=== PATIENT | male | born 1990 | race Caucasian/White ===

== ENCOUNTER 2020-10-25 18:09 | Emergency (ER) | payer SELFPAY ==
[~2020-10-25] VITALS: Ht 170 cm; Wt 79.0 kg
[2020-10-25 18:43] LABS: BASOPHILS # (AUTO) 0.1 10^3/uL (0.0-0.1); BASOPHILS % (AUTO) 1 % (0-10); EOSINOPHILS # (AUTO) 0.6 10^3/uL (0.0-0.3); EOSINOPHILS % (AUTO) 7 % (0-10); HEMATOCRIT 38 % (40-54); HEMOGLOBIN 12.8 g/dL (13.3-17.7); LYMPHOCYTES # (AUTO) 2.4 10^3/uL (1.0-4.0); LYMPHOCYTES % (AUTO) 29 % (12-44); MEAN CORPUSCULAR HEMOGLOBIN 29 pg (25-34); MEAN CORPUSCULAR HGB CONC 34 g/dL (32-36); MEAN CORPUSCULAR VOLUME 86 fL (80-99); MEAN PLATELET VOLUME 10.1 fL (9.0-12.2); MONOCYTES # (AUTO) 0.9 10^3/uL (0.0-1.0); MONOCYTES % (AUTO) 12 % (0-12); NEUTROPHILS # (AUTO) 4.1 10^3/uL (1.8-7.8); NEUTROPHILS % (AUTO) 51 % (42-75); PLATELET COUNT 234 10^3/uL (130-400); WHITE BLOOD COUNT 8.1 10^3/uL (4.3-11.0)
[2020-10-25] MEDS ORDERED: KETOROLAC 30 MG/ML VIAL IVP ONE (18:45)
[2020-10-25] MEDS ORDERED: LACTATED RINGERS 1,000 ML IV ONE (18:45)
[2020-10-25 18:49] LABS: CHLORIDE 98 MMOL/L (98-107); POTASSIUM 3.7 MMOL/L (3.6-5.0); SODIUM 133 MMOL/L (135-145)
[2020-10-25 18:50] LABS: CALCIUM 9.2 MG/DL (8.5-10.1)
[2020-10-25 18:51] LABS: TOTAL PROTEIN 7.6 GM/DL (6.4-8.2)
[2020-10-25 18:52] LABS: CARBON DIOXIDE 24 MMOL/L (21-32)
[2020-10-25 18:53] LABS: BILIRUBIN,TOTAL 0.6 MG/DL (0.1-1.0)
[2020-10-25 18:54] LABS: ALKALINE PHOSPHATASE 104 U/L (40-136)
[2020-10-25 18:55] LABS: GFR ESTIMATED > 60; GLUCOSE 452 MG/DL (70-105)
[2020-10-25 18:56] LABS: BUN/CREATININE RATIO 9
[2020-10-25 18:58] LABS: ALANINE AMINOTRANSFERASE 24 U/L (0-55)
[2020-10-25] MEDS ORDERED: inSUlin (REGULAR) HUMAN 1 UNIT/0.01 ML (CHARGE PER UNIT) IV ONE (19:00)
--- NOTE | 2020-10-25 19:05 | Diagnostic Imaging Report ---
EXAMINATION: Chest 1 view HISTORY: Cough and shortness of breath COMPARISON: None available. FINDINGS: The lungs are clear without edema or pneumonia. No pleural effusion or pneumothorax. Heart size is normal. IMPRESSION: 1. Clear lungs. Dictated by: Dictated on workstation # [id number]
--- NOTE | 2020-10-25 19:24 | ED General ---
General Chief Complaint: Respiratory Problems Stated Complaint: COUGH/CHEST PRESSURE/FEVER SOA HEADACHE Nursing Triage Note: ARRIVED VIA AMB WITH COMPLAINTS OF COUGH, CHEST DISCOMFORT, FEVER, FATIGUE, HEADACHE. STATES HE WAS EXPOSED X2 DAYS AGO TO COVID. Nursing Sepsis Screen: No Definite Risk Source of Information: Patient Exam Limitations: No Limitations History of Present Illness Date Seen by Provider: Oct 25, 2020 Time Seen by Provider: 18:16 Initial Comments This 30-year-old gentleman presents to the emergency room with flulike symptoms including headache, myalgia, cough, chest discomfort, especially after cough, diarrhea, low-grade fever, and most recently loss of taste and smell. He had a positive COVID-19 exposure from his nephew a few days ago. His roommate is a nurse so he is trying to be very proactive. He is a type I diabetic and reports his blood sugars normally run around 200. He gets symptomatic when his blood sugars dipped below 150. He is afebrile at this time but mildly tachycardic. Allergies and Home Medications Allergies Coded Allergies: No Known Drug Allergies (Unverified , 10/25/20) Home Medications Benzonatate 100 Mg Capsule, 200 MG PO TID PRN for COUGH Prescribed by: ALONA MILLER on 10/25/20 2019 Patient Home Medication List Home Medication List Reviewed: Yes Review of Systems Review of Systems Constitutional: see HPI EENTM: see HPI Respiratory: no symptoms reported Cardiovascular: see HPI Gastrointestinal: see HPI Genitourinary: no symptoms reported Musculoskeletal: no symptoms reported Skin: no symptoms reported Psychiatric/Neurological: See HPI Hematologic/Lymphatic: No Symptoms Reported Immunological/Allergic: no symptoms reported Past Gythrbl-Scqxjw-Siwjee Hx Past Med/Social Hx: Reviewed Nursing Past Med/Soc Hx Patient Social History Alcohol Use: Denies Use Recreational Drug Use: No Smoking Status: Current Everyday Smoker Recent Foreign Travel: No Contact w/Someone Who Travel: No Recent Infectious Disease Expo: No Recent Hopitalizations: No Seasonal Allergies Seasonal Allergies: No Past Medical History Surgeries: No Respiratory: No Cardiac: No Neurological: No Genitourinary: No Gastrointestinal: No Musculoskeletal: No Endocrine: Yes Diabetes, Insulin dep HEENT: No Cancer: No Psychosocial: No Integumentary: No Physical Exam Vital Signs Vital Signs - First Documented 10/25/20 18:15 Temp 36.2 Pulse 120 Resp 18 B/P (MAP) 129/55 (79) Pulse Ox 96 O2 Delivery Room Air Capillary Refill : Less Than 3 Seconds Height, Weight, BMI Height: '" Weight: lbs. oz. 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 Norm as Tested Skin: Normal Color, Warm/Dry Progress/Results/Core Measures Suspected Sepsis Recent Fever Within 48 Hours: No Infection Criteria Present: None New/Unexplained Altered Menta: No Sepsis Screen: No Definite Risk SIRS Temperature: Pulse: 120 Respiratory Rate: 18 Laboratory Tests 10/25/20 09:53: White Blood Count 8.1 Blood Pressure 129 /55 Mean: 79 Laboratory Tests 10/25/20 09:53: Platelet Count 234 10/25/20 18:28: Creatinine 1.30, Total Bilirubin 0.6 Results/Orders Lab Results Laboratory Tests Test 10/25/20 09:53 10/25/20 18:28 10/25/20 19:59 10/25/20 20:00 Range/Units White Blood Count 8.1 4.3-11.0 10^3/uL Red Blood Count 4.40 4.30-5.52 10^6/uL Hemoglobin 12.8 L 13.3-17.7 g/dL Hematocrit 38 L 40-54 % Mean Corpuscular Volume 86 80-99 fL Mean Corpuscular Hemoglobin 29 25-34 pg Mean Corpuscular Hemoglobin Concent 34 32-36 g/dL Red Cell Distribution Width 11.8 10.0-14.5 % Platelet Count 234 130-400 10^3/uL Mean Platelet Volume 10.1 9.0-12.2 fL Immature Granulocyte % (Auto) 0 % Neutrophils (%) (Auto) 51 42-75 % Lymphocytes (%) (Auto) 29 12-44 % Monocytes (%) (Auto) 12 0-12 % Eosinophils (%) (Auto) 7 0-10 % Basophils (%) (Auto) 1 0-10 % Neutrophils # (Auto) 4.1 1.8-7.8 10^3/uL Lymphocytes # (Auto) 2.4 1.0-4.0 10^3/uL Monocytes # (Auto) 0.9 0.0-1.0 10^3/uL Eosinophils # (Auto) 0.6 H 0.0-0.3 10^3/uL Basophils # (Auto) 0.1 0.0-0.1 10^3/uL Immature Granulocyte # (Auto) 0.0 0.0-0.1 10^3/uL D-Dimer 0.08 0.00-0.49 UG/ML Sodium Level 133 L 135-145 MMOL/L Potassium Level 3.7 3.6-5.0 MMOL/L Chloride Level 98 98-107 MMOL/L Carbon Dioxide Level 24 21-32 MMOL/L Anion Gap 11 5-14 MMOL/L Blood Urea Nitrogen 12 7-18 MG/DL Creatinine 1.30 0.60-1.30 MG/DL Estimat Glomerular Filtration Rate > 60 BUN/Creatinine Ratio 9 Glucose Level 452 *H 70-105 MG/DL Calcium Level 9.2 8.5-10.1 MG/DL Corrected Calcium 9.2 8.5-10.1 MG/DL Total Bilirubin 0.6 0.1-1.0 MG/DL Aspartate Amino Transf (AST/SGOT) 14 5-34 U/L Alanine Aminotransferase (ALT/SGPT) 24 0-55 U/L Alkaline Phosphatase 104 40-136 U/L Lactate Dehydrogenase 165 125-220 U/L C-Reactive Protein High Sensitivity 3.02 H 0.00-0.50 MG/DL Total Protein 7.6 6.4-8.2 GM/DL Albumin 4.0 3.2-4.5 GM/DL Procalcitonin 0.04 <0.10 NG/ML Coronavirus 2019 (SKYLAR) Negative Negative Glucometer 277 H 70-110 MG/DL Urine Color YELLOW Urine Clarity CLEAR Urine pH 5.5 5-9 Urine Specific [place] 1.020 1.016-1.022 Urine Protein NEGATIVE NEGATIVE Urine Glucose (UA) 3+ H NEGATIVE Urine Ketones NEGATIVE NEGATIVE Urine Nitrite NEGATIVE NEGATIVE Urine Bilirubin NEGATIVE NEGATIVE Urine Urobilinogen 0.2 < = 1.0 MG/DL Urine Leukocyte Esterase NEGATIVE NEGATIVE Urine RBC (Auto) NEGATIVE NEGATIVE Urine RBC NONE /HPF Urine WBC 0-2 /HPF Urine Squamous Epithelial Cells 0-2 /HPF Urine Crystals NONE /LPF Urine Bacteria TRACE /HPF Urine Casts NONE /LPF Urine Mucus NEGATIVE /LPF Urine Culture Indicated NO Micro Results Microbiology 10/25/20 Influenza Types A,B Antigen (LEXII) - Final, Complete My Orders Orders - ALONA GREEN MD Influenza A And B Antigens (10/25/20 18:16) Cbc With Automated Diff (10/25/20 18:35) Comprehensive Metabolic Panel (10/25/20 18:35) Fibrin Degradation Products (10/25/20 18:35) Procalcitonin (Pct) (10/25/20 18:35) Hs C Reactive Protein (10/25/20 18:35) LDH (10/25/20 18:35) Covid 19 Inhouse Test (10/25/20 18:35) Ketorolac Injection (Toradol Injection) (10/25/20 18:45) Ed Iv/Invasive Line Start (10/25/20 18:35) Lactated Ringers (Lr 1000 Ml Iv Solution (10/25/20 18:45) Chest 1 View, Ap/Pa Only (10/25/20 18:43) Insulin (Regular) Human (Novolin R (Per (10/25/20 19:00) Accucheck Stat ONCE (10/25/20 19:00) Ua Culture If Indicated (10/25/20 19:19) Coronavirus Sars-Cov-2 So 2018 (10/25/20 19:19) Benzonatate Capsule (Evelyn Loyola) (10/25/20 20:15) Medications Given in ED Current Medications Medications Dose Ordered Sig/Moises Route Start Time Stop Time Status Last Admin Dose Admin Benzonatate 200 mg ONCE ONCE PO 10/25/20 20:15 10/25/20 20:16 DC 10/25/20 20:31 200 MG Insulin Human Regular 5 unit ONCE ONCE IV 10/25/20 19:00 10/25/20 19:01 DC 10/25/20 19:10 5 UNIT Ketorolac Tromethamine 30 mg ONCE ONCE IVP 10/25/20 18:45 10/25/20 18:46 DC 12/25/20 18:44 30 MG Lactated Ringer's 1,000 ml @ 0 mls/hr Q0M ONCE IV 10/25/20 18:45 10/25/20 18:46 DC 10/25/20 18:44 1,000 MLS/HR Vital Signs/I&O 10/25/20 10/25/20 18:15 20:38 Temp 36.2 37.0 Pulse 120 93 Resp 18 17 B/P (MAP) 129/55 (79) 103/67 Pulse Ox 96 94 O2 Delivery Room Air Room Air Capillary Refill : Less Than 3 Seconds 2 Blood Pressure Mean: 79 Progress Note #1: Time: 20:14 Progress Note Patient received a liter of LR, Toradol, and 5 units of insulin. He is feeling better and his blood sugar has trended down nicely. His rapid Covid and influenza screens were negative. Labs were fairly unremarkable. I have advised him to check back with the ER after 24 hours to check on the Covid PCR test. If it is positive, he may qualify for monoclonal antibodies. UA is pending at this time. Progress Note #2: Time: 20:37 Progress Note Urine was unremarkable except for the presence of glucose. Diagnostic Imaging Diagonstic Imaging: Xray Plain Films/CT/US/NM/MRI: chest Comments Chest x-ray viewed by me and report reviewed. See report below: NAME: YSABEL HUTTON [facility] REC#: [id number] PT STATUS: REG ER : 1990 PHYSICIAN: ALONA GREEN MD ADMIT DATE: 10/25/20/ER Signed Date of Exam:10/25/20 CHEST 1 VIEW, AP/PA ONLY EXAMINATION: Chest 1 view HISTORY: Cough and shortness of breath COMPARISON: None available. FINDINGS: The lungs are clear without edema or pneumonia. No pleural effusion or pneumothorax. Heart size is normal. IMPRESSION: 1. Clear lungs. Dictated by: Dictated on workstation # [id number] Dict: 10/25/201902 Trans: 10/25/201902 [facility] [id number] Interpreted by: LAM GARCIA MD Electronically signed by: LAM GARCIA MD 10/25/201902 Departure Impression Primary Impression: Flu-like symptoms Additional Impressions: Person under investigation for COVID-19 Hyperglycemia Disposition: HOME, SELF-CARE Condition: Improved Departure-Patient Inst. Decision time for Depature: 20:16 Patient Instructions: Coronavirus Disease 2019 (COVID-19) Overview Add. Discharge Instructions: Drink plenty of water. You may take Tylenol (acetaminophen) up to 1000 mg every 6 hours as needed for pain or fever. Add ibuprofen up to 600 mg every 6 hours as needed for symptoms not controlled by Tylenol. Ibuprofen should be taken sparingly and diabetes. Remain in quarantine until the result of your Covid PCR test is known. If you have not heard the results yet by Wednesday, feel free to call the emergency room at the number provided. You may qualify for monoclonal antibody testing if your result is positive. If your Covid test is positive, stay in quarantine until released by the health department. Monitor your blood sugars closely. Call or return to care if you have any further problems or concerns. You may use Tessalon Perles for cough as prescribed. Some experts believe supplements such as a multivitamin, extra vitamin C, extra vitamin D, zinc, and elderberry may be helpful in fighting off Covid infections. You may consider these in addition to the treatments above. All discharge instructions reviewed with patient and/or family. Voiced understanding. Scripts Benzonatate (TESSALON PERLES) 100 Mg Capsule 200 MG PO TID PRN for COUGH, #20 CAP Prov: ALONA GREEN MD 10/25/20 ALONA GREEN MD Oct 25, 2020 19:24
[2020-10-25] MEDS ORDERED: BENZONATATE 100 MG (TESSALON) CAPSULE PO ONE (20:15)
[2020-10-25 20:18] LABS: BILIRUBIN,URINE NEGATIVE (NEGATIVE); CLARITY,URINE CLEAR; COLOR,URINE YELLOW; GLUCOSE, URINE (UA) 3+ (NEGATIVE); KETONES,URINE NEGATIVE (NEGATIVE); LEUKOCYTE ESTERASE ,URINE NEGATIVE (NEGATIVE); NITRITE,URINE NEGATIVE (NEGATIVE); PH,URINE 5.5 (5-9); PROTEIN,URINE NEGATIVE (NEGATIVE)
[2020-10-25] MEDS ORDERED: BENZ100C18 PO (20:19)
[2020-10-25 20:25] LABS: BACTERIA,URINE TRACE /HPF; SQUAMOUS EPITHELIAL CELL,UR 0-2 /HPF; WBC,URINE 0-2 /HPF
[2020-10-25 20:38] VITALS: BP 103/67
== END 2020-10-25 20:40 | disposition home or self-care (01) ==
LOC: ER 18:15
DX: J11.1 Influenza due to unidentified influenza virus with other respiratory manifestations (principal); E10.65 Type 1 diabetes mellitus with hyperglycemia; F17.200 Nicotine dependence, unspecified, uncomplicated; Z20.828 Contact with and (suspected) exposure to other viral communicable diseases
CPT/HCPCS: 71045; 80053; 81000; 82962; 83615; 84145; 85025; 85379; 86141; 87804; 99284; U0002; 36415; 87635

== ENCOUNTER 2021-08-27 11:47 | Emergency (ER) | payer SELFPAY ==
[~2021-08-27] VITALS: Ht 180 cm; Wt 78.0 kg
[~2021-08-27 11:47] MED LIST: BENZ100C18 PO
[2021-08-27] MEDS ORDERED: LACTATED RINGERS 1,000 ML IV SCH (12:00)
--- NOTE | 2021-08-27 12:03 | ED EENT ---
History of Present Illness General Chief Complaint: Oral/Throat Problems Stated Complaint: THROAT ABSCESS Source: patient Exam Limitations: no limitations (GEOVANY PORTILLO APRN) History of Present Illness Date Seen by Provider: Aug 27, 2021 Time Seen by Provider: 11:59 Initial Comments To ER with reports of left-sided neck swelling. He was seen by [facility] on Wednesday of this week with a sore throat had a negative strep test and an tibiotics were deferred. He went back today with increasing left neck pain and difficulty swallowing. Clinical exam there revealed a deviated uvula with left- sided peritonsillar edema. He has an insulin-dependent type 1 diabetic. His sugars have been in the 400 range. He also uses methamphetamine and marijuana. Timing/Duration: last week Severity: moderate Location: throat Associated Symptoms: facial pain/swelling; No fever; sore throat (GEOVANY PORTILLO APRN) Allergies and Home Medications Allergies Coded Allergies: No Known Drug Allergies (Unverified , 10/25/20) Patient Home Medication List Home Medication List Reviewed: Yes (GEOVANY PORTILLO APRN) Amoxicillin (Amoxicillin) 500 Mg Capsule, 500 MG PO TID Prescribed by: GEOVANY PORTILLO on 08/27/21 1337 Benzonatate (Tessalon Perles) 100 Mg Capsule, 200 MG PO TID PRN for COUGH Prescribed by: ALONA MILLER on 10/25/20 2019 Hydrocodone/Acetaminophen (Hydrocodone-Acetamin 5-325 mg) 1 Each Tablet, 1 TAB PO Q4H PRN for PAIN-MODERATE (5-7) Prescribed by: GEOVANY PORTILLO on 08/27/21 1338 Review of Systems Review of Systems Constitutional: see HPI Eyes: No Symptoms Reported Ears: No Symptoms Reported Nose: no symptoms reported Mouth: no symptoms reported Throat: no symptoms reported Respiratory: no symptoms reported Cardiovascular: no symptoms reported Musculoskeletal: no symptoms reported Skin: no symptoms reported (GEOVANY PORTILLO APRN) Past Zqtnxox-Uhmdpe-Nfrfim Hx Seasonal Allergies Seasonal Allergies: No (GEOVANY PORTILLO APRN) Past Medical History Surgeries: No Respiratory: No Cardiac: No Neurological: No Genitourinary: No Gastrointestinal: No Musculoskeletal: No Endocrine: Yes Diabetes, Insulin dep HEENT: No Cancer: No Psychosocial: No Integumentary: No (GEOVANY PORTILLO APRN) Physical Exam Vital Signs Vital Signs - First Documented 08/27/21 11:47 Temp 36.9 Pulse 112 Resp 16 B/P (MAP) 131/86 (101) Pulse Ox 99 O2 Delivery Room Air (MAURI BETANCUR ) Height, Weight, BMI Height: '" Weight: lbs. oz. kg; 27.00 BMI Method: General Appearance: WD/WN, no apparent distress Eyes: bilateral eye normal inspection, bilateral eye PERRL, bilateral eye EOMI Ears: bilateral ear auricle normal, bilateral ear canal normal, bilateral ear TM normal Mouth/Throat: No tonsillar exudate; tonsillar swelling (Left-sided tonsillar swelling with uvula deviated to the right); No trismus, No uvula swelling Neck: lymphadenopathy (L) Cardiovascular: no murmur, tachycardia Respiratory: lungs clear, normal breath sounds, no respiratory distress, no accessory muscle use Neurologic/Psychiatric: alert, normal mood/affect, oriented x 3 Skin: normal color, warm/dry (GEOVANY PORTILLO APRN) Procedures/Interventions I&D : Progress Anesthetized the oropharynx with topical Hurricaine spray then used 1 mL of 1% lidocaine with epinephrine using a 27-gauge needle to anesthetize the soft palate/left tonsillar pillar.. Then used a larger 18-gauge needle guarded at 1 cm depth to aspirate just under 2 mL of purulent material. Significant amount of purulent material was able to then be expressed and evacuated with suction. (GEOVANY PORTILLO APRN) Departure Communication (Admissions) NAME: YSABEL HUTTON [facility] REC#: [id number] PT STATUS: REG ER : 1990 PHYSICIAN: GEOVANY PORTILLO APRN ADMIT DATE: 08/27/21/ER Draft Date of Exam:08/27/21 CT NECK (SOFT TISSUE) W Clinical indications: Patient complains of sore throat. Patient was last seen at [facility] this week and back today and sent here. Patient states he is having trouble talking and swallowing. Negative strep throat. EXAM: Axial CT scan of the neck soft tissue performed with 75 mL of Omnipaque 350 IV contrast. Sagittal and coronal reformatted images are created. COMPARISON: None. FINDINGS: There is significant enlargement of the left palatine tonsil. There is a septated fluid collection in the left peritonsillar region with peripheral enhancement which measures 2.1 cm x 2.4 cm x 2.2 cm (AP x Trans x CC). This is consistent with an abscess. There is fat stranding in the left peritonsillar region and along the left side of the deep neck. There is also prominence of the right palatine tonsil trauma/and agree compared to the left. There is no abscess involving the right peritonsillar region. There is soft tissue swelling of the uvula/soft palate. There is swelling seen along the left lateral oropharyngeal wall extending to the left pharyngoepiglottic and left aryepiglottic fold. There is an internal right laryngocele noted. There is no swelling of the glottis noted. There is mild to moderate narrowing of the oral pharynx. The epiglottis is unremarkable and not swollen. There is mild prominence of the posterior nasopharyngeal adenoid soft tissue likely reactive. There is bilateral cervical lymphadenopathy with the left side worse than the right. There are multiple lymph nodes in the bilateral submandibular regions the left side more than the right. Largest lymph node in the left side of the neck measures at least 1.8 cm x 1.2 cm. The largest lymph node in the left submandibular region measures 2.1 cm x 0.9 cm. There is slight enlargement of the left submandibular gland which may be related to the adjacent inflammation. There is fat stranding in the deep and superficial portion of the left side of the neck. Thyroid gland is unremarkable. Visualized upper lung hill are clear. Cervical spine is unremarkable. Limited visualization intracranial structures are unremarkable. Paranasal sinuses and mastoid air cells are clear. IMPRESSION: 1: There is significant enlargement of the left palatine tonsil consistent with left palatine tonsillitis. There is also a 2.4 cm left peritonsillar abscess.. There is soft tissue swelling extending along the left lateral oropharyngeal wall with asymmetric swelling of the left pharyngoepiglottic and left aryepiglottic folds. There is no swelling of the epiglottis. There is mild to moderate narrowing of the airway. 2: There is cervical and submandibular lymphadenopathy. 3: There is prominence of the right palatine tonsil and posterior nasopharyngeal adenoid soft tissue which may be reactive. Dictated on workstation # [id number] Dict: 08/27/21 1249 Trans: 08/27/21 1312 [facility] [id number] Interpreted by: AGGIE HALL MD Electronically signed by: [id number] did recommend admission to the hospital for IV antibiotics steroids and insulin given his poorly controlled diabetes. He would prefer to go home. He will sign out AGAINST MEDICAL ADVICE. I will put him on amoxicillin as this will be the most affordable medication for him. (GEOVANY PORTILLO APRN) Impression Primary Impression: Peritonsillar abscess Additional Impression: Poorly controlled diabetes mellitus Disposition: HOME, SELF-CARE Condition: Stable Departure-Patient Inst. Decision time for Depature: 13:36 (GEOVANY PORTILLO APRN) Patient Instructions: Peritonsillar Abscess, Adult Add. Discharge Instructions: Please note that you are signing out AGAINST MEDICAL ADVICE. Please return promptly to the emergency room for any worsening symptoms. The steroids given here plus the infection will both cause your blood sugars to increase so keep a close eye on your blood sugars and take your insulin accordingly. I have sent in antibiotics and pain medication to [facility]. Please follow-up with your doctor later this week for recheck. All discharge instructions reviewed with patient and/or family. Voiced understanding. Scripts Hydrocodone/Acetaminophen (Hydrocodone-Acetamin 5-325 mg) 1 Each Tablet 1 TAB PO Q4H PRN for PAIN-MODERATE (5-7), #14 TAB Prov: GEOVANY PORTILLO APRN 08/27/21 Amoxicillin (Amoxicillin) 500 Mg Capsule 500 MG PO TID, #21 CAP 0 Refills Prov: GEOVANY PORTILLO APRN 08/27/21 ATTENDING PHYSICIAN NOTE: I WAS PHYSICALLY PRESENT ER PHYSICIAN WHILE THIS PT WAS IN ER, BUT I WAS NOT INVOLVED IN ANY DECISION MAKING OR ANY CARE OF THIS PATIENT. (MAURI BETANCUR DO) GEOVANY PORTILLO APRN Aug 27, 2021 12:03 MAURI BETANCUR DO Aug 29, 2021 21:39
[2021-08-27 12:25] LABS: BASOPHILS # (AUTO) 0.1 10^3/uL (0.0-0.1); BASOPHILS % (AUTO) 0 % (0-10); EOSINOPHILS # (AUTO) 0.2 10^3/uL (0.0-0.3); EOSINOPHILS % (AUTO) 1 % (0-10); HEMATOCRIT 34 % (40-54); HEMOGLOBIN 11.3 g/dL (13.3-17.7); LYMPHOCYTES # (AUTO) 2.7 10^3/uL (1.0-4.0); LYMPHOCYTES % (AUTO) 23 % (12-44); MEAN CORPUSCULAR HEMOGLOBIN 29 pg (25-34); MEAN CORPUSCULAR HGB CONC 34 g/dL (32-36); MEAN CORPUSCULAR VOLUME 86 fL (80-99); MONOCYTES # (AUTO) 1.3 10^3/uL (0.0-1.0); MONOCYTES % (AUTO) 11 % (0-12); NEUTROPHILS # (AUTO) 7.4 10^3/uL (1.8-7.8); NEUTROPHILS % (AUTO) 64 % (42-75); PLATELET COUNT 229 10^3/uL (130-400); WHITE BLOOD COUNT 11.7 10^3/uL (4.3-11.0)
[2021-08-27 12:30] LABS: ALBUMIN 3.4 GM/DL (3.2-4.5); POTASSIUM 4.2 MMOL/L (3.6-5.0)
[2021-08-27] MEDS ORDERED: IOHEXOL 350 MG/ML 100 ML (OMNIPAQUE 350) VIAL IV ONE (12:30)
[2021-08-27] MEDS ORDERED: HOLD METFORMIN - RECEIVED CONTRAST 20 ML VIAL IV SCH (12:30)
[2021-08-27] MEDS ORDERED: NS 100 ML (IVPB) BAG IV ONE (12:30)
[2021-08-27 12:31] LABS: CALCIUM 9.2 MG/DL (8.5-10.1)
[2021-08-27 12:34] LABS: BILIRUBIN,TOTAL 0.7 MG/DL (0.1-1.0)
[2021-08-27 12:36] LABS: CREATININE SERUM 1.12 MG/DL (0.60-1.30)
[2021-08-27 12:44] LABS: INR 0.9 (0.8-1.4); PROTHROMBIN TIME PATIENT 12.5 SEC (12.2-14.7)
[2021-08-27] MEDS ORDERED: fentaNYL INJ 100 MCG/2 ML AMP IVP ONE (13:00)
[2021-08-27] MEDS ORDERED: CEFUROXIME INJECTION 1,500 MG in WATER (STERILE) FOR INJECTION 15 ML IV ONE (13:00)
--- NOTE | 2021-08-27 13:12 | Diagnostic Imaging Report ---
Clinical indications: Patient complains of sore throat. Patient was last seen at [facility] this week and back today and sent here. Patient states he is having trouble talking and swallowing. Negative strep throat. EXAM: Axial CT scan of the neck soft tissue performed with 75 mL of Omnipaque 350 IV contrast. Sagittal and coronal reformatted images are created. COMPARISON: None. FINDINGS: There is significant enlargement of the left palatine tonsil. There is a septated fluid collection in the left peritonsillar region with peripheral enhancement which measures 2.1 cm x 2.4 cm x 2.2 cm (AP x Trans x CC). This is consistent with an abscess. There is fat stranding in the left peritonsillar region and along the left side of the deep neck. There is also prominence of the right palatine tonsil trauma/and agree compared to the left. There is no abscess involving the right peritonsillar region. There is soft tissue swelling of the uvula/soft palate. There is swelling seen along the left lateral oropharyngeal wall extending to the left pharyngoepiglottic and left aryepiglottic fold. There is an internal right laryngocele noted. There is no swelling of the glottis noted. There is mild to moderate narrowing of the oral pharynx. The epiglottis is unremarkable and not swollen. There is mild prominence of the posterior nasopharyngeal adenoid soft tissue likely reactive. There is bilateral cervical lymphadenopathy with the left side worse than the right. There are multiple lymph nodes in the bilateral submandibular regions the left side more than the right. Largest lymph node in the left side of the neck measures at least 1.8 cm x 1.2 cm. The largest lymph node in the left submandibular region measures 2.1 cm x 0.9 cm. There is slight enlargement of the left submandibular gland which may be related to the adjacent inflammation. There is fat stranding in the deep and superficial portion of the left side of the neck. Thyroid gland is unremarkable. Visualized upper lung hill are clear. Cervical spine is unremarkable. Limited visualization intracranial structures are unremarkable. Paranasal sinuses and mastoid air cells are clear. IMPRESSION: 1: There is significant enlargement of the left palatine tonsil consistent with left palatine tonsillitis. There is also a 2.4 cm left peritonsillar abscess.. There is soft tissue swelling extending along the left lateral oropharyngeal wall with asymmetric swelling of the left pharyngoepiglottic and left aryepiglottic folds. There is no swelling of the epiglottis. There is mild to moderate narrowing of the airway. 2: There is cervical and submandibular lymphadenopathy. 3: There is prominence of the right palatine tonsil and posterior nasopharyngeal adenoid soft tissue which may be reactive. Dictated by: Dictated on workstation # [id number]
--- NOTE | 2021-08-27 13:13 | Diagnostic Imaging Report ---
EXAMINATION: Chest 1 view HISTORY: sepsis COMPARISON: 10/25/2020. FINDINGS: Heart size and pulmonary vasculature are normal. The lungs are clear without consolidation, pleural effusion, or pneumothorax. The osseous structures are intact. IMPRESSION: 1. No acute radiographic abnormality in the chest. Dictated by: Dictated on workstation # [id number]
[2021-08-27] MEDS ORDERED: ACHD5005 PO (13:37)
[2021-08-27] MEDS ORDERED: AMOX500C2 PO (13:37)
[2021-08-27 14:45] VITALS: BP 111/70
== END 2021-08-27 14:45 | disposition home or self-care (01) ==
LOC: EDUNIT# 11:47 → ER 11:49
DX: J36 Peritonsillar abscess (principal); E10.9 Type 1 diabetes mellitus without complications; R00.0 Tachycardia, unspecified
CPT/HCPCS: 36415; 70491; 71045; 80053; 82947; 83605; 85025; 85610; 85730; 87040; 87070; 87075; 87205

== ENCOUNTER 2022-07-22 12:21 | Inpatient (IN) | payer BC, OTHER ==
[~2022-07-22] VITALS: Ht 177 cm; Wt 65.0 kg
[~2022-07-22 12:21] MED LIST changes: +ACHD5005 PO; +AMOX500C2 PO; +CLIN-144 PO
--- NOTE | 2022-07-22 13:32 | ED Integumentary General ---
General Chief Complaint: Skin/Wound Problems Stated Complaint: RIGHT HAND PINKY FINGER RED/SWOLLEN/PAINFUL Nursing Triage Note: MULTIPLE OPEN DRAINING WOUNDS FROM IV METH USE. AREAS WRAPPED IN GAUZE. PT NEEDS SCRIPT PRINTED. UNKNOWN ADDRESS OF PHARMACY Source: patient Exam Limitations: no limitations History of Present Illness Date Seen by Provider: Jul 22, 2022 Time Seen by Provider: 13:18 Initial Comments Patient is a 32-year-old male with history of IV methamphetamine abuse who presents to the emergency room with a chief complaint of bilateral forearm pain, redness, swelling. He has developed lesions/abscesses over the course of the last week. He was seen at [facility] 24 hours prior to arrival and had a "shot of antibiotics" and was started on a prescription of antibiotics. He states he was advised to come back in 24 hours later for reevaluation but states that the swelling and redness were so much worse and the pain was so much worse he decided to come to the emergency room. He states decreased appetite, mild nausea. He complains of pain most specifically in the right hand. No chest pain or shortness of breath. No vomiting or diarrhea. He states that he "fell off the wagon" after period of sobriety from methamphetamine. He is a type I diabetic. He has been buying his insulin [id number] from [employer]. He does not have a primary care physician. He cannot recall the last time he had his hemoglobin A1c checked he thinks it was at least 2 years ago. He does not check his blood sugars routinely because he lost his glucometer. He states a good blood sugar for him usually runs around 400, if he gets much lower than that he starts to have feelings of hypoglycemia. All other review of systems reviewed and negative except as stated. Timing/Duration: week Location: extremities Possible Cause: other (meth use) Associated Symptoms: edema, paresthesia, swelling/mass/lumps Allergies and Home Medications Allergies Coded Allergies: No Known Drug Allergies (Unverified , 10/25/20) Patient Home Medication List Home Medication List Reviewed: Yes Amoxicillin (Amoxicillin) 500 Mg Capsule, 500 MG PO TID Prescribed by: GEOVANY PORTILLO on 08/27/21 1337 Benzonatate (Tessalon Perles) 100 Mg Capsule, 200 MG PO TID PRN for COUGH Prescribed by: ALONA MILLER on 10/25/202018 Clindamycin HCl (Clindamycin HCl) 300 Mg Capsule, 300 MG PO TID Prescribed by: GEOVANY PORTILLO on 09/10/21 1315 Hydrocodone/Acetaminophen (Hydrocodone-Acetamin 5-325 mg) 1 Each Tablet, 1 TAB PO Q4H PRN for PAIN-MODERATE (5-7) Prescribed by: GEOVANY PORTILLO on 08/27/21 1338 Review of Systems Review of Systems Constitutional: see HPI, malaise, weakness EENTM: no symptoms reported Respiratory: no symptoms reported Cardiovascular: no symptoms reported Gastrointestinal: no symptoms reported Genitourinary: no symptoms reported Musculoskeletal: joint swelling (right hand) Skin: other (wounds, redness, drainage) Psychiatric/Neurological: Depressed All Other Systems Reviewed Negative Unless Noted: Yes Past Mxuwnys-Yekjwq-Abadmx Hx Patient Social History Tobacco Use?: Yes Smokeless Tobacco Frequency: Current Everyday User Substance use?: Yes Substance type: Methamphetamine Alcohol Use?: No Immunizations Up To Date First/Initial COVID19 Vaccinat: UNKNOWN Second COVID19 Vaccination Dipesh: 07/22 COVID19 Vaccine 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 Seasonal Allergies Seasonal Allergies: No Past Medical History Surgeries: No Respiratory: No Cardiac: No Neurological: No Genitourinary: No Gastrointestinal: No Musculoskeletal: No Endocrine: Yes Diabetes, Insulin dep HEENT: No Cancer: No Psychosocial: No Integumentary: No Physical Exam Vital Signs Vital Signs - First Documented 07/22/22 12:25 Temp 36.9 Pulse 118 Resp 16 B/P (MAP) 123/75 (91) Pulse Ox 98 O2 Delivery Room Air Capillary Refill : Less Than 3 Seconds General Appearance: WD/WN, no apparent distress HEENT: PERRL/EOMI Neck: full range of motion Cardiovascular: regular rate, rhythm Respiratory: lungs clear, normal breath sounds, no respiratory distress, no accessory muscle use Gastrointestinal: normal bowel sounds, non tender, soft Extremities: normal range of motion, normal capillary refill (left hand; delayed right hand (pallor at finger tips of right hand)), swelling (bilateral forearms; right hand edema with 1.5cm wound medial right hand 5th finger no fluctuance) Neurologic/Psychiatric: alert, normal mood/affect, oriented x 3 Skin: normal color, warm/dry, other (erythema and wounds bilateral forearms all are drainaing copious amounts of purulent material. tender to palpation. necrotic tissue overlying.) Skin Problem Location: upper extremities Skin Problem Character: abscess, drainage, erythema, tenderness, warm Progress/Results/Core Measures Results/Orders Lab Results Laboratory Tests Test 07/22/22 13:50 07/22/22 14:14 Range/Units White Blood Count 15.3 H 4.3-11.0 10^3/uL Red Blood Count 3.67 L 4.30-5.52 10^6/uL Hemoglobin 10.3 L 13.3-17.7 g/dL Hematocrit 31 L 40-54 % Mean Corpuscular Volume 84 80-99 fL Mean Corpuscular Hemoglobin 28 25-34 pg Mean Corpuscular Hemoglobin Concent 33 32-36 g/dL Red Cell Distribution Width 13.6 10.0-14.5 % Platelet Count 371 130-400 10^3/uL Mean Platelet Volume 9.7 9.0-12.2 fL Immature Granulocyte % (Auto) 1 % Neutrophils (%) (Auto) 87 H 42-75 % Lymphocytes (%) (Auto) 6 L 12-44 % Monocytes (%) (Auto) 6 0-12 % Eosinophils (%) (Auto) 0 0-10 % Basophils (%) (Auto) 0 0-10 % Neutrophils # (Auto) 13.3 H 1.8-7.8 10^3/uL Lymphocytes # (Auto) 0.9 L 1.0-4.0 10^3/uL Monocytes # (Auto) 1.0 0.0-1.0 10^3/uL Eosinophils # (Auto) 0.0 0.0-0.3 10^3/uL Basophils # (Auto) 0.0 0.0-0.1 10^3/uL Immature Granulocyte # (Auto) 0.1 0.0-0.1 10^3/uL Neutrophils % (Manual) 82 % Lymphocytes % (Manual) 10 % Monocytes % (Manual) 5 % Band Neutrophils 3 % Blood Morphology Comment NORMAL Erythrocyte Sedimentation Rate 122 H 0-15 MM/HR Sodium Level 128 L 135-145 MMOL/L Potassium Level 3.7 3.6-5.0 MMOL/L Chloride Level 91 L 98-107 MMOL/L Carbon Dioxide Level 19 L 21-32 MMOL/L Anion Gap 18 H 5-14 MMOL/L Blood Urea Nitrogen 15 7-18 MG/DL Creatinine 1.72 H 0.60-1.30 MG/DL Estimat Glomerular Filtration Rate 53 BUN/Creatinine Ratio 9 Glucose Level 914 *H 70-105 MG/DL Lactic Acid Level 2.57 *H 0.50-2.00 MMOL/L Calcium Level 9.0 8.5-10.1 MG/DL Corrected Calcium 10.0 8.5-10.1 MG/DL Total Bilirubin 0.3 0.1-1.0 MG/DL Aspartate Amino Transf (AST/SGOT) 10 5-34 U/L Alanine Aminotransferase (ALT/SGPT) 16 0-55 U/L Alkaline Phosphatase 99 40-136 U/L C-Reactive Protein High Sensitivity 29.13 H 0.00-0.50 MG/DL Total Protein 7.1 6.4-8.2 GM/DL Albumin 2.8 L 3.2-4.5 GM/DL Prothrombin Time 13.9 12.2-14.7 SEC INR Comment 1.0 0.8-1.4 Activated Partial Thromboplast Time 44 H 24-35 SEC Micro Results Microbiology 07/22/22 Gram Stain - Final, Resulted 07/22/22 Wound Culture - Preliminary, Resulted Staphylococcus aureus My Orders Orders - NAS GARCIA MD Cbc With Automated Diff (07/22/22 13:32) Comprehensive Metabolic Panel (07/22/22 13:32) Blood Culture (07/22/22 13:32) Urinalysis (07/22/22 13:32) Urine Culture (07/22/22 13:32) Protime With Inr (07/22/22 13:32) Partial Thromboplastin Time (07/22/22 13:32) Chest 1 View, Ap/Pa Only (07/22/22 13:32) Ed Iv/Invasive Line Start (07/22/22 13:32) Ed Iv/Invasive Line Start (07/22/22 13:32) Vital Signs Adult Sepsis Patie Q15M (07/22/22 13:32) O2 (07/22/22 13:32) Remove Rings In Anticipation O (07/22/22 13:32) Lactic Acid Analyzer (07/22/22 13:32) Hs C Reactive Protein (07/22/22 13:32) Erythrocyte Sedimentation Rate (07/22/22 13:32) Manual Differential (07/22/22 13:50) Piperacillin Sodium/Tazobactam (Zosyn Vi (07/22/22 14:15) Vancomycin Injection (Vancomycin Injecti (07/22/22 14:15) Wound Culture (07/22/22 14:14) Hydrocodone/Apap 7.5/325 Tab (Lortab 7. (07/22/22 14:45) Insulin (Regular) Human (Novolin R (Per (07/22/22 15:15) Ns Iv 1000 Ml (Sodium Chloride 0.9%) (07/22/22 15:15) Hand, Right, 3 Views (07/22/22 15:21) Forearm, 2 Views, Bilateral (07/22/22 15:21) Cho 75g/M 0snack (21-2400 Joey) (07/22/22 Dinner) Nicotine Patch (Nicoderm Patch) (07/22/22 15:30) Ed Admission (Communication) (07/22/22 15:24) Medications Given in ED Vital Signs/I&O 07/22/22 12:25 Temp 36.9 Pulse 118 Resp 16 B/P (MAP) 123/75 (91) Pulse Ox 98 O2 Delivery Room Air Blood Pressure Mean: 91 Diagnostic Imaging Diagonstic Imaging: Xray Plain Films/CT/US/NM/MRI: chest Comments [facility], [place] NAME: YSABEL HUTTON [facility] REC#: [id number] PT STATUS: REG ER : 1990 PHYSICIAN: NAS GARCIA MD ADMIT DATE: 07/22/22/ER Draft Date of Exam:07/22/22 CHEST 1 VIEW, AP/PA ONLY EXAMINATION: Chest, 1 view. HISTORY: Sepsis. COMPARISON: 08/27/2021. FINDINGS: The heart size and pulmonary vasculature are normal. The lungs are clear without consolidation, pleural effusion, or pneumothorax. The osseous structures are intact. IMPRESSION: No acute radiographic abnormality in the chest. Dictated on workstation # [id number] Dict: 07/22/22 1343 Trans: 07/22/22 1344 [id number] Interpreted by: BLESSING PARKER DO Electronically signed by: Departure Communication (Admissions) discussed with Dr Woodward; would like ICU Impression Primary Impression: cellulitisof both upper extremities Additional Impressions: Methamphetamine abuse Sepsis Qualified Codes: A41.9 - Sepsis, unspecified organism Disposition: ADMITTED INPATIENT Condition: Stable Admissions Decision to Admit Reason: Admit from ER (General) Decision to Admit/Date: Jul 22, 2022 Time/Decision to Admit Time: 15:06 Departure-Patient Inst. Referrals: NO,LOCAL PHYSICIAN (PCP/Family) Primary Care Physician Images Extremities-Upper 1 - Cellulitis, Swelling, Tenderness 2 - Edema, Lesion (s), Rash, Swelling, Tenderness 1 - abscess 1 - Moderate, Cellulitis, Edema, Lesion (s), Swelling, Tenderness Copy Copies To 1: YUE HERNANDEZ KATHRYN M MD Jul 22, 2022 13:32
--- NOTE | 2022-07-22 13:44 | Diagnostic Imaging Report ---
EXAMINATION: Chest, 1 view. HISTORY: Sepsis. COMPARISON: 08/27/2021. FINDINGS: The heart size and pulmonary vasculature are normal. The lungs are clear without consolidation, pleural effusion, or pneumothorax. The osseous structures are intact. IMPRESSION: No acute radiographic abnormality in the chest. Dictated by: Dictated on workstation # [id number]
[2022-07-22 14:02] LABS: BASOPHILS % (AUTO) 0 % (0-10); EOSINOPHILS % (AUTO) 0 % (0-10); HEMATOCRIT 31 % (40-54); HEMOGLOBIN 10.3 g/dL (13.3-17.7); LYMPHOCYTES # (AUTO) 0.9 10^3/uL (1.0-4.0); LYMPHOCYTES % (AUTO) 6 % (12-44); MEAN CORPUSCULAR HEMOGLOBIN 28 pg (25-34); MEAN CORPUSCULAR HGB CONC 33 g/dL (32-36); MEAN CORPUSCULAR VOLUME 84 fL (80-99); MEAN PLATELET VOLUME 9.7 fL (9.0-12.2); MONOCYTES % (AUTO) 6 % (0-12); NEUTROPHILS # (AUTO) 13.3 10^3/uL (1.8-7.8); NEUTROPHILS % (AUTO) 87 % (42-75); PLATELET COUNT 371 10^3/uL (130-400); WHITE BLOOD COUNT 15.3 10^3/uL (4.3-11.0)
[2022-07-22 14:11] LABS: ALBUMIN 2.8 GM/DL (3.2-4.5); POTASSIUM 3.7 MMOL/L (3.6-5.0)
[2022-07-22 14:13] LABS: TOTAL PROTEIN 7.1 GM/DL (6.4-8.2)
[2022-07-22 14:15] LABS: BILIRUBIN,TOTAL 0.3 MG/DL (0.1-1.0)
[2022-07-22] MEDS ORDERED: VANCOMYCIN INJECTION 1,000 MG in NS (IVPB) 250 ML IV ONE (14:15)
[2022-07-22] MEDS ORDERED: PIPERACILLIN SODIUM/TAZOBACTAM 4.5 GM in NS (IVPB) 100 ML IV ONE (14:15)
[2022-07-22 14:16] LABS: BAND NEUTROPHILS 3 %; LYMPHOCYTES % (MANUAL) 10 %; MONOCYTES % (MANUAL) 5 %; NEUTROPHILS % (MANUAL) 82 %; RBC MORPH NORMAL
[2022-07-22 14:17] LABS: CREATININE SERUM 1.72 MG/DL (0.60-1.30)
[2022-07-22 14:21] LABS: ERYTHROCYTE SEDIMENTATION RATE 122 MM/HR (0-15)
[2022-07-22] MEDS ORDERED: HYDROcodone/APAP 7.5 MG/325 MG (LORTAB, LORCET PLUS) TABLET PO ONE (14:45)
[2022-07-22 14:54] LABS: PROTHROMBIN TIME PATIENT 13.9 SEC (12.2-14.7)
[2022-07-22] MEDS ORDERED: NS IV 1000 ML 1,000 ML IV SCH ×2 (15:15→17:00)
[2022-07-22] MEDS ORDERED: inSUlin (REGULAR) HUMAN 1 UNIT/0.01 ML (CHARGE PER UNIT) SC ONE (15:15)
[2022-07-22] MEDS ORDERED: NICOTINE 21 MG (NICODERM) PATCH TD ONE (15:30)
--- NOTE | 2022-07-22 15:48 | History & Physical-Hospitalist ---
History of Present Illness HPI/Chief Complaint Pt is a 32yoCM with a PMH of IDDMI and methamphetamine abuse who presented to the ER due to wounds on his arms. He was seen at [facility] walk in yesterday and antibiotics were prescribed and x-ray was done. His wounds continued to worsen so he presented to the ER for evaluation. He was found to be septic with DKA. On my exam he was preoccupied by not being able to eat. He stated he was very frustrated and was worried we were going to drop his BS too quickly. He states he normally runs in the 500s and if he gets below 300 he gets confused and can pass out and if we don't let him eat he will leave. He is also requesting a nicotine patch because he smokes 2ppd. We discussed at length the need for glycemic control in order to help his wounds heal and I reminded him that was the reason he presented to the hospital. He is agreeable to the plan. He reports the wounds started a couple of days ago and they are from falls he has had from his blood sugar being too low. He has been buying Relion 70/30 insulin OTC and treating his BS based off a sliding scale that he just guesses with. He has not been able to get an a1c since he was diagnosed 3 years ago. Source: patient Date Seen 07/22/22 Time Seen by a Provider: 15:43 Attending Physician No,Local Physician PCP Admitting Physician: Attending Physician: Referring Physician Date of Admission Home Medications & Allergies Home Medications Reviewed patient Home Medication Reconciliation performed by pharmacy medication reconciliations microfilm technician and/or nursing. Patients Allergies have been reviewed. Allergies Allergies Coded Allergies No Known Drug Allergies (Xjlptrfjtl45/25/20) Past Hrgwpbt-Wbskwl-Yniras Hx Patient Social History Tobacco Use?: Yes Smoking Status: Current Everyday Smoker Smokeless Tobacco Frequency: Current Everyday User Substance use?: Yes Substance type: Methamphetamine Alcohol Use?: No Immunizations Up To Date First/Initial COVID19 Vaccinat: UNKNOWN Second COVID19 Vaccination Dipesh: 07/22 Seasonal Allergies Seasonal Allergies: No Current Status Advance Directives: No Primary Language: Niuean Preferred Spoken Language: Niuean Past Medical History Diabetes, Insulin dep Family Medical History Reviewed Nursing Family Hx No Pertinent Family Hx No previous surgeries IDDMI- diagnosied at 28yo Depression Review of Systems Constitutional: No chills, No fever EENTM: no symptoms reported Respiratory: no symptoms reported Cardiovascular: no symptoms reported; No syncope Gastrointestinal: diarrhea Genitourinary: no symptoms reported Musculoskeletal: no symptoms reported Skin: see HPI Psychiatric/Neurological: Anxiety, Depressed Physical Exam Physical Exam Vital Signs Vital Signs - First Documented 07/22/22 12:25 Temp 36.9 Pulse 118 Resp 16 B/P (MAP) 123/75 (91) Pulse Ox 98 O2 Delivery Room Air Capillary Refill : Less Than 3 Seconds Height, Weight, BMI Height: '" Weight: lbs. oz. kg; 22.00 BMI Method: General Appearance: No Apparent Distress, Chronically ill, Thin HEENT: PERRL/EOMI, Moist Mucous Membranes; No Scleral Icterus (L), No Scleral Icterus (R); Other (edentulous) Neck: Normal Inspection, Supple Respiratory: Lungs Clear, No Accessory Muscle Use, No Respiratory Distress Cardiovascular: Regular Rate, Rhythm, No JVD, No Murmur Gastrointestinal: Normal Bowel Sounds, Non Tender, Soft Extremity: Normal Capillary Refill, No Calf Tenderness, No Pedal Edema Neurologic/Psychiatric: Alert, Oriented x3, Normal Mood/Affect Skin: Erythema, Other (multiple draining ulcers on right upper extremity, with edema of hand and ulceration on base of fifth metacarpal) Results Results/Procedures Labs Laboratory Tests 07/22/22 13:50 07/22/22 17:14 07/22/22 18:48 07/22/22 23:00 07/23/22 04:45 Patient resulted labs reviewed. Imaging: Reviewed Imaging Report Imaging [facility], [place] NAME: YSABEL HUTTON Vanessa [facility] REC#: [id number] PT STATUS: REG ER : 1990 PHYSICIAN: NAS GARCIA MD ADMIT DATE: 07/22/22/ER Signed Date of Exam:07/22/22 CHEST 1 VIEW, AP/PA ONLY EXAMINATION: Chest, 1 view. HISTORY: Sepsis. COMPARISON: 08/27/2021. FINDINGS: The heart size and pulmonary vasculature are normal. The lungs are clear without consolidation, pleural effusion, or pneumothorax. The osseous structures are intact. IMPRESSION: No acute radiographic abnormality in the chest. Dictated by: Dictated on workstation # [id number] Dict: 07/22/22 1343 Trans: 07/22/22 1426 [id number] Interpreted by: BLESSING PARKER DO Electronically signed by: BLESSING PARKER DO 07/22/22 1426 Assessment/Plan Admission Diagnosis Severe Sepsis Admission Status: Inpatient Order (span 2 midnights) Reason for Inpatient Admission: see below Assessment and Plan Severe Sepsis Cellulitis with abscess MARCEL Tachy with leukocytosis and lactic >2 Cultures drawn in ER cellulitis noted Vanc and Zosyn started IVF Monitor UOP DKA IDDMI BS 914 Gap 18 with bicarb of 19 Insulin gtt ordered Patient reports BS normally in the 500 and he is symptomatic in the 300s I informed him goal is to get BS below 300 and we will help with symptoms but that wounds would not heal without glycemic control PEM Very thing with temporal wasting and albumin of 2.8 Will add glucerna to meals Illicit drug use reports methamphetamine use to ER Denied to me UDS ordered JIMMY JEFFERY MD Jul 22, 2022 15:48
--- NOTE | 2022-07-22 15:59 | Diagnostic Imaging Report ---
INDICATION: Arm injury. FINDINGS: AP and lateral views of left arm reveal multiple regions of subcutaneous gas within the mid and proximal forearm; however, there is no evidence of fracture, malalignment, or focal bone destruction. No radiopaque foreign object is identified. IMPRESSION: Findings suggest probable cellulitis without acute osseous abnormality. Dictated by: Dictated on workstation # [id number]
[2022-07-22 16:03] LABS: BILIRUBIN,URINE NEGATIVE (NEGATIVE); CLARITY,URINE CLEAR; COLOR,URINE YELLOW; GLUCOSE, URINE (UA) 3+ (NEGATIVE); KETONES,URINE 1+ (NEGATIVE); LEUKOCYTE ESTERASE ,URINE NEGATIVE (NEGATIVE); NITRITE,URINE NEGATIVE (NEGATIVE); PROTEIN,URINE NEGATIVE (NEGATIVE)
--- NOTE | 2022-07-22 16:06 | Diagnostic Imaging Report ---
INDICATION: Abscess; DM sepsis; open wounds. COMPARISON: None. FINDINGS: Three views of the right hand were obtained and show no fractures, dislocations, or other acute bony abnormalities. Joint spaces are well maintained throughout. The soft tissues appear unremarkable. No unexpected radiopaque foreign bodies are identified. IMPRESSION: Unremarkable radiographic exam of the right hand. Dictated by: Dictated on workstation # [id number]
[2022-07-22 16:14] LABS: BACTERIA,URINE TRACE /HPF; SQUAMOUS EPITHELIAL CELL,UR 0-2 /HPF
[2022-07-22 16:16] LABS: AMPHETAMINE SCREEN, URINE POSITIVE (NEGATIVE); BARBITURATE SCREEN URINE NEGATIVE (NEGATIVE); BENZODIAZEPINES SCREEN URINE NEGATIVE (NEGATIVE); CANNABINOID SCREEN, URINE POSITIVE (NEGATIVE); COCAINE SCREEN URINE NEGATIVE (NEGATIVE); METHADONE STAT NEGATIVE (NEGATIVE); OPIATE SCREEN URINE NEGATIVE (NEGATIVE); OXYCODONE STAT NEGATIVE (NEGATIVE); PROPOXYPHENE STAT NEGATIVE (NEGATIVE); TRICYCLIC ANTIDEPRESSANTS SCRE NEGATIVE (NEGATIVE)
[2022-07-22] MEDS ORDERED: HYPOCHLOROUS ACID/NaCl (VASHE) 250 ML IR PRN (17:00)
[2022-07-22] MEDS ORDERED: ANTACID SUSP 30 ML UDC (MYLANTA) PO PRN (17:00)
[2022-07-22] MEDS ORDERED: ONDANSETRON 4 MG/2 ML (SDV) Z0FRAN IV PRN (17:00)
[2022-07-22] MEDS ORDERED: POTASSIUM CL 10MEQ/50ML IVPB 50 ML IV SCH (17:00)
[2022-07-22] MEDS ORDERED: MELATONIN 3 MG TABLET PO PRN (17:00)
[2022-07-22] MEDS ORDERED: BENZONATATE 100 MG (TESSALON) CAPSULE PO PRN (17:00)
[2022-07-22] MEDS ORDERED: VANCOMYCIN INJECTION 0.1 MG in NS (IVPB) 250 ML IV SCH (17:00)
[2022-07-22] MEDS ORDERED: MILK OF MAGNESIA 400 MG/5 ML 30 ML UDC PO PRN (17:00)
[2022-07-22] MEDS ORDERED: VANCOMYCIN 500 MG/NS 100 ML IV NR ×2 (17:00)
--- NOTE | 2022-07-22 17:20 | Tele-ICU Consult ---
History of Present Illness History of Present Illness Date Seen by Provider: Jul 22, 2022 Time Seen by Provider: 17:15 Date of Admission 07/22/22 History of Present Illness (Tele-ICU Physician , consultation) Available chart/ vitals / labs / Images reviewed H&P is from ER notes Patient's information available about PMH, allergy reviewed in EMR. ROS as per chart and RN report Video assessment done using teleICU camera, rest of exam as per RN Discussed with RN. He has a history of 4 IV meth use, diabetes mellitus apparently his blood sugars usually run around [id number] range and a noncompliant with his insulin presents to the emergency room with a complaint of 4 multiple wounds on the hands with erythema and swelling suggestive of cellulitis along with open wounds. He is found to have a diabetic ketoacidosis along with a cellulitis. Hence he is admitted to the intensive care unit for insulin drip and close monitoring along with IV antibiotics treatment. Allergies and Home Medications Allergies Coded Allergies: No Known Drug Allergies (Unverified , 10/25/20) Home Medications Amoxicillin 500 Mg Capsule, 500 MG PO TID Prescribed by: GEOVANY PORTILLO on 08/27/21 1337 Benzonatate 100 Mg Capsule, 200 MG PO TID PRN for COUGH Prescribed by: ALONA MILLER on 10/25/20 2019 Clindamycin HCl 300 Mg Capsule, 300 MG PO TID Prescribed by: GEOVANY PORTILLO on 09/10/21 1315 Hydrocodone/Acetaminophen 1 Each Tablet, 1 TAB PO Q4H PRN for PAIN-MODERATE (5- 7) Prescribed by: GEOVANY PORTILLO on 08/27/21 1338 Past Medical/Social/Family Hx Patient Social History Tobacco Use?: Yes Smoking Status: Current Everyday Smoker Smokeless Tobacco Frequency: Current Everyday User Use of E-Cig and/or Vaping dev: No Substance use?: Yes Substance type: Methamphetamine Alcohol Use?: No Pt stated abuse/neglect: No Immunizations Up To Date First/Initial COVID19 Vaccinat: UNKNOWN Second COVID19 Vaccination Dipesh: 07/22 Current Status Advance Directives: No Communicates: Verbally Primary Language: Nicaraguan Preferred Spoken Language: Nicaraguan Family Medical History Family Hx: No previous surgeries IDDMI- diagnosied at 28yo Depression Review of Systems Constitutional: see HPI, fever Other ROS PER RN Focused Exam Lactate Level 07/22/22 13:50: Lactic Acid Level 2.57*H 07/22/22 15:55: Lactic Acid Level 1.51 Height, Weight, BMI Height: '" Weight: lbs. oz. kg; 20.84 BMI Method: Lactic Acid Level Laboratory Tests Test 07/22/22 13:50 07/22/22 15:55 Lactic Acid Level 2.57 MMOL/L (0.50-2.00) *H 1.51 MMOL/L (0.50-2.00) Exam Exam Patient acknowledged, consented, and participated in this virtual visit which was conducted using real time audio/video Vital Signs Date Time Temp Pulse Resp B/P (MAP) Pulse Ox O2 Delivery O2 Flow Rate FiO2 07/22/22 17:00 121 7 149/116 (127) 99 Room Air 07/22/22 16:51 117 16 176/124 (141) 98 Room Air 07/22/22 12:25 36.9 118 16 123/75 (91) 98 Room Air Height & Weight Height: '" Weight: lbs. oz. kg; 20.84 BMI Method: General Appearance: No Apparent Distress, Chronically ill, Thin HEENT: PERRL/EOMI, Moist Mucous Membranes; No Scleral Icterus (L), No Scleral Icterus (R); Other (edentulous) Neck: Normal Inspection, Supple Respiratory: Lungs Clear, No Accessory Muscle Use, No Respiratory Distress Cardiovascular: Regular Rate, Rhythm, No JVD, No Murmur Capillary Refill: Less Than 3 Seconds Gastrointestinal: normal bowel sounds, non tender, soft Extremity: Normal Capillary Refill, No Calf Tenderness, No Pedal Edema Neurologic/Psychiatric: Alert, Oriented x3, Normal Mood/Affect Skin: Erythema, Other (multiple draining ulcers on right upper extremity, with edema of hand and ulceration on base of fifth metacarpal) Other comments PE PER RN Results Lab Laboratory Tests 07/22/22 13:50 Assessment/Plan Assessment/Plan 1. Diabetic ketoacidosis due to noncompliance with the insulin and development of cellulitis and abscess 2. IV meth use and polysubstance abuse 3. Acute kidney injury. Recommendations 1. IV insulin drip per primary care 2. IV Zosyn and vancomycin 3. Advised her to quit substance abuse 4. DVT prophylaxis 5. IV hydration 6. Monitor electrolytes and blood sugars closely. Critical Care: Critically Ill Patient Time spent with patient (mins): 30 ROBERT,RENÉ P MD Jul 22, 2022 17:20
[2022-07-22 17:29] LABS: POTASSIUM 3.1 MMOL/L (3.6-5.0)
[2022-07-22 17:30] LABS: CALCIUM 9.6 MG/DL (8.5-10.1)
[2022-07-22 17:34] LABS: CREATININE SERUM 1.43 MG/DL (0.60-1.30)
[2022-07-22] MEDS: POTASSIUM CL 10MEQ/50ML IVPB 50 ML IV SCH ×2 (18:27→18:36)
[2022-07-22] MEDS: 1/2 NS IV SOLUTION 1,000 ML IV SCH ×2 (19:09→21:00)
[2022-07-22 19:13] LABS: POTASSIUM 3.1 MMOL/L (3.6-5.0)
[2022-07-22 19:14] LABS: CALCIUM 8.8 MG/DL (8.5-10.1)
[2022-07-22 19:18] LABS: CREATININE SERUM 1.3 MG/DL (0.60-1.30)
[2022-07-22] MEDS: HYDROcodone/APAP 5 MG/325 MG (LORTAB) TAB PO PRN (19:53)
[2022-07-22] MEDS: PIPERACILLIN SODIUM/TAZOBACTAM 4.5 GM in NS (IVPB) 100 ML IV SCH (21:28)
[2022-07-22] MEDS: D5 1/2 NS 1000 ML IV SOLUTION 1,000 ML IV SCH (22:45)
[2022-07-23] MEDS: 1/2 NS IV SOLUTION 1,000 ML IV SCH ×4 (01:00→13:10)
[2022-07-23 01:23] LABS: CALCIUM 8.3 MG/DL (8.5-10.1); CREATININE SERUM 0.85 MG/DL (0.60-1.30); POTASSIUM 3.2 MMOL/L (3.6-5.0)
[2022-07-23] MEDS: HYDROcodone/APAP 5 MG/325 MG (LORTAB) TAB PO PRN ×3 (02:41→14:18)
[2022-07-23] MEDS: D5 1/2 NS 1000 ML IV SOLUTION 1,000 ML IV SCH ×2 (03:20→07:38)
[2022-07-23] MEDS: VANCOMYCIN 1 GM/NS 250 ML IVPB IV SCH ×4 (04:22→17:00)
[2022-07-23 05:11] LABS: BASOPHILS # (AUTO) 0.1 10^3/uL (0.0-0.1); BASOPHILS % (AUTO) 0 % (0-10); EOSINOPHILS # (AUTO) 0.1 10^3/uL (0.0-0.3); EOSINOPHILS % (AUTO) 1 % (0-10); HEMATOCRIT 26 % (40-54); HEMOGLOBIN 8.5 g/dL (13.3-17.7); LYMPHOCYTES % (AUTO) 14 % (12-44); MEAN CORPUSCULAR HEMOGLOBIN 28 pg (25-34); MEAN CORPUSCULAR HGB CONC 33 g/dL (32-36); MEAN CORPUSCULAR VOLUME 84 fL (80-99); MEAN PLATELET VOLUME 9.3 fL (9.0-12.2); MONOCYTES % (AUTO) 7 % (0-12); NEUTROPHILS # (AUTO) 11.4 10^3/uL (1.8-7.8); NEUTROPHILS % (AUTO) 78 % (42-75); PLATELET COUNT 303 10^3/uL (130-400); WHITE BLOOD COUNT 14.6 10^3/uL (4.3-11.0)
[2022-07-23 05:25] LABS: ALBUMIN 2.3 GM/DL (3.2-4.5)
[2022-07-23 05:28] LABS: TOTAL PROTEIN 5.6 GM/DL (6.4-8.2)
[2022-07-23] MEDS: PIPERACILLIN SODIUM/TAZOBACTAM 4.5 GM in NS (IVPB) 100 ML IV SCH ×2 (05:28→13:21)
[2022-07-23 05:30] LABS: BILIRUBIN,TOTAL 0.2 MG/DL (0.1-1.0)
[2022-07-23 05:32] LABS: CREATININE SERUM 0.76 MG/DL (0.60-1.30)
[2022-07-23] MEDS ORDERED: NS IV 500 ML 500 ML IV PRN (05:45)
[2022-07-23] MEDS ORDERED: MAGNESIUM 1 GM/100 ML IVPB 100 ML IV SCH (06:00)
[2022-07-23] MEDS ORDERED: KCL 20 MEQ TAB (K-DUR) PO SCH (06:00)
[2022-07-23] MEDS ORDERED: POTASSIUM CL 10MEQ/50ML IVPB 50 ML IV SCH (06:00)
[2022-07-23] MEDS: POTASSIUM CL 10MEQ/50ML IVPB 50 ML IV SCH ×5 (06:15→09:07)
--- NOTE | 2022-07-23 08:30 | Progress Note - Hospitalist ---
Subjective HPI/CC On Admission Date Seen by Provider: Jul 23, 2022 Pt is a 32yoCM with a PMH of IDDMI and methamphetamine abuse who presented to the ER due to wounds on his arms. He was seen at [facility] walk in yesterday and antibiotics were prescribed and x-ray was done. His wounds continued to worsen so he presented to the ER for evaluation. He was found to be septic with DKA. On my exam he was preoccupied by not being able to eat. He stated he was very frustrated and was worried we were going to drop his BS too quickly. He states he normally runs in the 500s and if he gets below 300 he gets confused and can pass out and if we don't let him eat he will leave. He is also requesting a nicotine patch because he smokes 2ppd. We discussed at length the need for glycemic control in order to help his wounds heal and I reminded him that was the reason he presented to the hospital. He is agreeable to the plan. He reports the wounds started a couple of days ago and they are from falls he has had from his blood sugar being too low. He has been buying Relion 70/30 insulin OTC and treating his BS based off a sliding scale that he just guesses with. He has not been able to get an a1c since he was diagnosed 3 years ago. Subjective/Events-last exam Pt reports feeling well. Feeling betetr than yesterday. Eating a chocolate pudding and tolerating blood sugars int eh 200s. Discussed plan for transition to bolus insulin. He is also ok with attempting to switch regimen to Levemir/Novolog. Focused Exam Lactate Level 07/22/22 13:50: Lactic Acid Level 2.57*H 07/22/22 15:55: Lactic Acid Level 1.51 Objective Exam Vital Signs Vital Signs Date Time Temp Pulse Resp B/P (MAP) Pulse Ox O2 Delivery O2 Flow Rate FiO2 07/23/22 07:39 36.8 07/23/22 06:00 91 15 116/60 (78) 97 Room Air Capillary Refill : Less Than 3 Seconds General Appearance: No Apparent Distress, Chronically ill, Thin Respiratory: Lungs Clear, No Respiratory Distress Cardiovascular: Regular Rate, Rhythm, No Murmur Extremity: Other (wounds dressed with gauze and angely bandage) Neurologic/Psychiatric: Alert, Oriented x3 Results/Procedures Lab Laboratory Tests 07/22/22 13:50 07/22/22 17:14 07/22/22 18:48 07/22/22 23:00 07/23/22 04:45 Patient resulted labs reviewed. Imaging: Reviewed Imaging Report Assessment/Plan Assessment and Plan Assess & Plan/Chief Complaint Severe Sepsis- improving Cellulitis with abscess MARCEL-POA Wound culture with MRSA Will order contact precautions Blood Cultures pending Vanc and Zosyn Wound care consult Creatinine improved DKA- resolved IDDMI BS into the 200s Will transition off Insulin gtt Levemir ordered SSI A1c pending PEM Very thing with temporal wasting and albumin of 2.8 Will add glucerna to meals Illicit drug use reports methamphetamine use to ER Denied to me UDS + for meth Critical Care Critically Ill Patient JIMMY JEFFERY MD Jul 23, 2022 08:30
--- NOTE | 2022-07-23 08:55 | Tele-ICU Progress Note ---
Subjective Date Seen by a Provider: Jul 23, 2022 Time Seen by a Provider: 08:50 Subjective/Events-last exam (Tele-ICU Physician , consultation) Available chart/ vitals / labs / Images reviewed H&P is from ER notes Patient's information available about PMH, allergy reviewed in EMR. ROS as per chart and RN report Video assessment done using teleICU camera, rest of exam as per RN Discussed with RN. He has a history of IV meth use, diabetes mellitus apparently his blood sugars usually run around [id number] range and a noncompliant with his insulin presents to the emergency room with a complaint of 4 multiple wounds on the hands with erythema and swelling suggestive of cellulitis along with open wounds. He is found to have a diabetic ketoacidosis along with a cellulitis. Hence he is admitted to the intensive care unit for insulin drip and close monitoring along with IV antibiotics treatment. WOUND C/S [employer]. ?MRSA. hand and arm pain some improved. DKA improving. AG is 8 Sepsis Event Evaluation Height, Weight, BMI Height: '" Weight: lbs. oz. kg; 20.84 BMI Method: Focused Exam Lactate Level 07/22/22 13:50: Lactic Acid Level 2.57*H 07/22/22 15:55: Lactic Acid Level 1.51 Exam Exam Patient acknowledged, consented, and participated in this virtual visit which was conducted using real time audio/video Vital Signs Date Time Temp Pulse Resp B/P (MAP) Pulse Ox O2 Delivery O2 Flow Rate FiO2 07/23/22 08:00 96 20 124/89 (101) 97 Room Air 07/23/22 08:00 Room Air 07/23/22 07:39 36.8 07/23/22 07:00 96 07/23/22 07:00 90 16 116/70 (85) 98 Room Air 07/23/22 06:00 91 15 116/60 (78) 97 Room Air 07/23/22 05:00 90 14 118/67 (84) 96 Room Air 07/23/22 04:00 Room Air 07/23/22 04:00 89 11 102/59 (73) 98 Room Air 07/23/22 03:00 92 10 108/59 (75) 98 Room Air 07/23/22 02:00 91 14 121/71 (88) 98 Room Air 07/23/22 01:17 92 07/23/22 01:00 93 8 104/58 (73) 98 Room Air 07/23/22 00:00 37.0 07/23/22 00:00 94 10 102/59 (73) 98 Room Air 07/23/22 00:00 Room Air 07/22/22 23:00 94 11 119/70 (86) 97 Room Air 07/22/22 22:00 98 11 114/67 (83) 97 Room Air 07/22/22 21:00 Room Air 07/22/22 21:00 100 9 122/76 (91) 97 Room Air 07/22/22 20:50 14 122/76 (91) 97 Room Air 07/22/22 20:00 113 10 140/81 (100) 99 Room Air 07/22/22 19:01 114 07/22/22 19:00 112 11 145/92 (109) 98 Room Air 07/22/22 18:00 112 Room Air 07/22/22 18:00 11 141/86 (104) 98 Room Air 07/22/22 17:00 121 7 149/116 (127) 99 Room Air 07/22/22 16:51 117 16 176/124 (141) 98 Room Air 07/22/22 16:45 Room Air 07/22/22 16:42 116 20 159/91 97 Room Air 07/22/22 12:25 36.9 118 16 123/75 (91) 98 Room Air I & O 07/23/22 07:00 Intake Total 3640 ml Balance 3640 ml Height & Weight Height: '" Weight: lbs. oz. kg; 20.84 BMI Method: General Appearance: No Apparent Distress, Chronically ill, Thin HEENT: PERRL/EOMI, Moist Mucous Membranes; No Scleral Icterus (L), No Scleral Icterus (R); Other (edentulous) Neck: Normal Inspection, Supple Respiratory: Lungs Clear, No Respiratory Distress Cardiovascular: Regular Rate, Rhythm, No Murmur Capillary Refill: Less Than 3 Seconds Gastrointestinal: normal bowel sounds, non tender, soft Extremity: Other (wounds dressed with gauze and angely bandage) Neurologic/Psychiatric: Alert, Oriented x3 Skin: Erythema, Other (multiple draining ulcers on right upper extremity, with edema of hand and ulceration on base of fifth metacarpal) Results Lab Laboratory Tests 07/22/22 13:50 07/22/22 17:14 07/22/22 18:48 07/22/22 23:00 07/23/22 04:45 Assessment/Plan Assessment/Plan 1. Diabetic ketoacidosis due to noncompliance with the insulin and development of cellulitis and abscess improved. 2. IV meth use and polysubstance abuse 3. Acute kidney injury resolved. Recommendations 1. May wean off insulin drip with addition of SSI 2. IV Zosyn and vancomycin 3. Advised her to quit substance abuse 4. DVT prophylaxis 5. IV hydration 6. Monitor electrolytes and blood sugars closely. Critical Care: Critically Ill Patient Critical Care: Critically Ill Patient (20) Time spent with patient (mins): 20 RENÉ JONES MD Jul 23, 2022 08:55
[2022-07-23] MEDS ORDERED: NICOTINE 21 MG (NICODERM) PATCH TD SCH (09:00)
[2022-07-23] MEDS ORDERED: NICOTINE 14 MG (NICODERM) PATCH TD SCH (09:00)
--- NOTE | 2022-07-23 10:37 | Wound Care Assessment ---
Wound Care Assessment Date Seen by Provider: Jul 23, 2022 Time Seen by Provider: 10:11 Chief Complaint b/l arm wounds and right hand wound HPI Maxi Donis is a 32y/o M w/ a PMH of insulin dependant DM, IV meth use, and depression who is being seen to day for wounds present on both arms and his right hand. Pt reports that the wounds began about a week ago. 2 days ago he went to the [facility] walk-in clinic where he was started on antibiotics and XRs were done. Then yesterday he began to feel worse so he went into the ER here in [place]. Pt was found to be septic and in DKA w/ blood glucose level in the 900s. He had said that he liked to keep his BS in the 500s because anything under 300 and he starts to get confused. He had been buying Relion 70/30 OTC and then dosing himself. He did admit to IV meth use today while we were present in the room. Also smoking 2ppd. Denies that he has been having any fevers or c hills. Does not currently have a PCP but says that he is scheduled for an appointment to establish care on Aug 28, pt is unsure if it is with [facility] or not. Mariano's wound healing will be complicated by poor glycemic control, protein energy malnutrition, tobaccoism, and illicit stimulant use. Significant time spent in counseling patient on lifestyle choices and the effects as such on wound healing. He is high risk for loss of limb and with current trajectory. I am concerned with the fluctuance on left forearm and hand of underlying abscess that may not resolve without I&D. I did discuss with Dr. Woodward. Surgical input may be warranted. Past Medical History: Admits Diabetes Type II IV meth use, depression Smoking Status: Current Everyday Smoker (2ppd) Recreational Drug Use: Yes (IV methamphetamine and marijuana) Review of Systems General: No Chills, No Other (fever) Musculoskeletal: arm pain, hand pain Exam Vital Signs Date Time Temp Pulse Resp B/P (MAP) Pulse Ox O2 Delivery O2 Flow Rate FiO2 07/23/22 08:00 96 20 124/89 (101) 97 Room Air 07/23/22 07:39 36.8 Capillary Refill : Less Than 3 Seconds General Appearance: no apparent distress, thin Neck: full range of motion Cardiovascular: no edema Respiratory: no respiratory distress, no accessory muscle use Extremities: no pedal edema, inflammation (b/l arms and right hand), swelling (b/l arms and right hand) Neurologic/Psychiatric: alert, normal mood/affect, oriented x 3, depressed affect (tearful at times) Skin Problem Location: upper extremities Skin Character: abscess, drainage (purulent), erythema, swelling, tenderness, warm Right elbow abscess is 1.1cm x 1.3cm x 0.9 cm, primary etiology of IV drug use and secondary of DM, circumferential undermining with depth of 2.9cm, large purulent exudate large necrotic tissue, no epithelialization and no granulation, area erythematous and swollen. Right forearm is 0.3cm x 0.5cm x 0.8cm, primary etiology of IV drug use and secondary of DM, circumferential undermining, large purulent exudate, large necrotic tissue, no epithelialization and no granulation, area erythematous and swollen. Right hand is 0.8cm x 1.1cm x 0.2cm, primary etiology of IV drug use and secondary of DM, 12-7 o'clock undermining with depth of 1cm, large purulent exudate, large necrotic tissue, no epithelialization and no granulation, area erythematous and swollen. Blistering in periwound. Left forearm there is an abscess cluster w/ largest 1.2cm x 1.0cm x 0.1cm (bottom wound), the bottom abscess is open while none of the others are, primary etiology of IV drug use and secondary of DM, large amount of purulent drainage,large necrotic tissue (eschar), no epithelialization and no granulation, area erythematous and swollen. no undermining or tunneling, area erythematous and swollen, it is likely that the other wounds in the cluster will open up and begin having a purulent discharge as well. Results Laboratory Tests 07/22/22 13:50: White Blood Count 15.3H, Red Blood Count 3.67L, Hemoglobin 10.3L, Hematocrit 31L , Mean Corpuscular Volume 84, Mean Corpuscular Hemoglobin 28, Mean Corpuscular Hemoglobin Concent 33, Red Cell Distribution Width 13.6, Platelet Count 371, Mean Platelet Volume 9.7, Immature Granulocyte % (Auto) 1, Neutrophils (%) (A uto) 87H, Lymphocytes (%) (Auto) 6L, Monocytes (%) (Auto) 6, Eosinophils (%) (Auto) 0, Basophils (%) (Auto) 0, Neutrophils # (Auto) 13.3H, Lymphocytes # (Auto) 0.9L, Monocytes # (Auto) 1.0, Eosinophils # (Auto) 0.0, Basophils # (Auto) 0.0, Immature Granulocyte # (Auto) 0.1, Neutrophils % (Manual) 82, Lymphocytes % (Manual) 10, Monocytes % (Manual) 5, Band Neutrophils 3, Blood Morphology Comment NORMAL, Erythrocyte Sedimentation Rate 122H, Sodium Level 128L, Potassium Level 3.7, Chloride Level 91L, Carbon Dioxide Level 19L, Anion Gap 18H, Blood Urea Nitrogen 15, Creatinine 1.72H, Estimat Glomerular Filtration Rate 53, BUN/Creatinine Ratio 9, Glucose Level 914*H, Lactic Acid Level 2.57*H, Calcium Level 9.0, Corrected Calcium 10.0, Total Bilirubin 0.3, Aspartate Amino Transf (AST/SGOT) 10, Alanine Aminotransferase (ALT/SGPT) 16, Alkaline Phosphatase 99, C-Reactive Protein High Sensitivity 29.13H, Total Protein 7.1, Albumin 2.8L 07/22/22 14:14: Prothrombin Time 13.9, INR Comment 1.0, Activated Partial Thromboplast Time 44H 07/22/22 15:52: Urine Color YELLOW, Urine Clarity CLEAR, Urine pH 5.0, Urine Specific [place] 1.010L, Urine Protein NEGATIVE, Urine Glucose (UA) 3+H, Urine Ketones 1+H, Urine Nitrite NEGATIVE, Urine Bilirubin NEGATIVE, Urine Urobilinogen 0.2, Urine Leukocyte Esterase NEGATIVE, Urine RBC (Auto) TRACE-IH, Urine RBC NONE, Urine WBC NONE, Urine Squamous Epithelial Cells 0-2, Urine Renal Epithelial Cells NONE, Urine Crystals NONE, Urine Bacteria TRACE, Urine Casts NONE, Urine Mucus NEGATIVE, Urine Culture Indicated CULTURE PENDING, Urine Opiates Screen NEGATIVE, Urine Oxycodone Screen NEGATIVE, Urine Methadone Screen NEGATIVE, Urine Propoxyphene Screen NEGATIVE, Urine Barbiturates Screen NEGATIVE, Ur Tricyclic Antidepressants Screen NEGATIVE, Urine Phencyclidine Screen NEGATIVE, Urine Amphetamines Screen POSITIVEH, Urine Methamphetamines Screen POSITIVEH, Urine Benzodiazepines Screen NEGATIVE, Urine Cocaine Screen NEGATIVE, Urine Cannabinoids Screen POSITIVEH 07/22/22 15:55: Lactic Acid Level 1.51 07/22/22 17:14: Sodium Level 134L, Potassium Level 3.1L, Chloride Level 97L, Carbon Dioxide Level 19L, Anion Gap 18H, Blood Urea Nitrogen 13, Creatinine 1.43H, Estimat Glomerular Filtration Rate 66, BUN/Creatinine Ratio 9, Glucose Level 593*H, Calcium Level 9.6, Beta-Hydroxybutyrate (Chem panel) 1.13H 07/22/22 18:48: Sodium Level 138, Potassium Level 3.1L, Chloride Level 101, Carbon Dioxide Level 22, Anion Gap 15H, Blood Urea Nitrogen 12, Creatinine 1.30, Estimat Glomerular Filtration Rate 74, BUN/Creatinine Ratio 9, Glucose Level 540*H, Calcium Level 8.8 07/22/22 19:35: Glucometer 406*H 07/22/22 20:35: Glucometer 319H 07/22/22 21:30: Glucometer 262H 07/22/22 22:34: Glucometer 226H 07/22/22 23:00: Sodium Level 136, Potassium Level 3.2L, Chloride Level 104, Carbon Dioxide Level 22, Anion Gap 10, Blood Urea Nitrogen 9, Creatinine 0.85, Estimat Glomerular Filtration Rate 117, BUN/Creatinine Ratio 11, Glucose Level 222H, Calcium Level 8.3L 07/22/22 23:34: Glucometer 219H 07/23/22 00:40: Glucometer 207H 07/23/22 01:39: Glucometer 216H 07/23/22 02:32: Glucometer 222H 07/23/22 03:41: Glucometer 171H 07/23/22 04:27: Glucometer 213H 07/23/22 04:45: White Blood Count 14.6H, Red Blood Count 3.08L, Hemoglobin 8.5L, Hematocrit 26L, Mean Corpuscular Volume 84, Mean Corpuscular Hemoglobin 28, Mean Corpuscular Hemoglobin Concent 33, Red Cell Distribution Width 13.4, Platelet Count 303, Mean Platelet Volume 9.3, Immature Granulocyte % (Auto) 1, Neutrophils (%) (Auto) 78H, Lymphocytes (%) (Auto) 14, Monocytes (%) (Auto) 7, Eosinophils (%) (Auto) 1, Basophils (%) (Auto) 0, Neutrophils # (Auto) 11.4H, Lymphocytes # (Auto) 2.0, Monocytes # (Auto) 1.0, Eosinophils # (Auto) 0.1, Basophils # (Auto) 0.1, Immature Granulocyte # (Auto) 0.1, Sodium Level 131L, Potassium Level 3.0L, Chloride Level 103, Carbon Dioxide Level 20L, Anion Gap 8, Blood Urea Nitrogen 7, Creatinine 0.76, Estimat Glomerular Filtration Rate 121, BUN/Creatinine Ratio 9, Glucose Level 235H, Calcium Level 8.0L, Corrected Calcium 9.4, Total Bilirubin 0.2, Aspartate Amino Transf (AST/SGOT) 17, Alanine Aminotransferase (ALT/SGPT) 14, Alkaline Phosphatase 96, Total Protein 5.6L, Albumin 2.3L 07/23/22 05:31: Glucometer 263H 07/23/22 06:35: Glucometer 241H 07/23/22 07:16: Glucometer 223H 07/23/22 08:29: Glucometer 219H 07/23/22 09:25: Glucometer 214H 07/23/22 10:25: Glucometer 175H Microbiology 07/22/22 Gram Stain - Final, Resulted 07/22/22 Wound Culture - Preliminary, Resulted Staphylococcus aureus Microbiology 07/22/22 Gram Stain - Final, Resulted 07/22/22 Wound Culture - Preliminary, Resulted Staphylococcus aureus Assessment/Plan/Dx Abscesses of right elbow, forearm, hand, and left forearm due to IV drug use Cellulitis -WC done in ER has grown staph aureus, awaiting sensitivities -Currently on IV Vancomycin and Zosyn (WBC trending down) -Use santyl and dakin's solution on wounds BID and dressing changes as needed -pain control as needed -Hand and forearm XRs done w/ forearm XR showing, according to radiology, findings suggest probable cellulitis without acute osseous abnormality. -Leukocytosis w/ WBC of 14.6 today, down from 15.3 yesterday -ESR of 122 and CRP of 29.13 -Consider CT vs. surgical consult for I&D/debridement as indicated -Tight glycemic control -Discussed w/ him about how he needs to stop using meth and smoking tobacco due to the adverse impacts that use of both have on wound healing, pt was understanding and agreed that would be in his best interests Insulin dependent DM DKA-resolved -managed by medicine team -Stressed importance of establishing care with PCP upon discharge for [facility] Hypoalbuminemia -suggest protein supplementation Hyponatremia Hypokalemia -managed by medicine team and eICU IV drug and tobacco use -as previous mentioned discussed w/ pt the benefits of stopping use Supervisory-Addendum Brief Verification & Attestation Participated in pt care: history, MDM, physical Personally performed: exam, history, MDM, supervision of care Care discussed with: Medical Student Procedures: n/a Results interpretation: Verified all documentation MD NATHANIEL Mast COLLIN Jul 23, 2022 10:37 CAYETANO STEVENS MD Jul 23, 2022 13:32
[2022-07-23] MEDS: inSUlin ASPART (NovoLOG) 1 UNIT/0.01 ML (CHARGE PER UNIT) SC SCH ×3 (13:10→20:35)
[2022-07-23] MEDS ORDERED: HUM100VI13 SQ (14:22)
[2022-07-23 15:40] LABS: POTASSIUM 3.4 MMOL/L (3.6-5.0)
[2022-07-23 15:46] LABS: CREATININE SERUM 0.79 MG/DL (0.60-1.30)
--- NOTE | 2022-07-23 16:29 | Diagnostic Imaging Report ---
Exam: Ultrasound left upper extremity. Date: July 23, 2022. Indication: 32-year-old male, concern for abscess at the level of left forearm. Pain at this location. Comparison: Bilateral forearm radiographs July 22, 2022. Findings: Targeted ultrasound was performed at area of focal concern which is labeled at the level of the left posterior forearm. There is a focal hypoechoic area superficially located measuring approximately 10 x 3 mm in size. The additional hyperechoic foci within the soft tissues present. Impression: 1. Focal hypoechoic area in the region of focal concern measuring 10 x 3 mm in size which may potentially reflect phlegmon or early abscess. 2. Hyperechoic foci within the soft tissues which could reflect soft tissue gas, especially correlating with radiographs. Dictated by: Dictated on workstation # [id number]
--- NOTE | 2022-07-23 16:31 | Diagnostic Imaging Report ---
Exam: Right upper extremity ultrasound. Date: July 23, 2022. Indication: 32-year-old male, right forearm pain and swelling. Concern for abscess. Comparison: Forearm radiograph July 22, 2022. Findings: Targeted ultrasound was performed at the area of focal concern which is labeled at the level of the posterior forearm. There are areas of prominent upper echogenicity within the soft tissues which could relate to soft tissue gas correlating with radiographs. Near the skin surface, there is a heterogeneously hypoechoic focal area measuring 10 x 6 mm in size which is not particularly well marginated. At the mid aspect of the forearm in medial to lateral extent on image 55, there is an additional somewhat focal 5 mm hypoechoic area which is not particularly well defined. Additional heterogeneously echoic focal areas are also demonstrated. Impression: 1. Near the skin surface, there is a hypoechoic focal area measuring 10 x 6 mm size which could relate to a phlegmon. 2. Areas of hyperechogenic foci within the soft tissues may reflect soft tissue gas. 3. Additional heterogeneously echogenic foci are present without clearly identified mature drainable fluid collection or abscess at this time. 4. If further followup imaging is needed, CT or MRI without and with intravenous contrast is recommended. Dictated by: Dictated on workstation # [id number]
[2022-07-23 17:16] VITALS: BP 139/86
--- NOTE | 2022-07-23 17:25 | Consultation - Surgery ---
ZACK PACHECO 07/23/22 1725: History of Present Illness History of Present Illness Patient Consulted On(mt/time) 07/23/22 17:10 Date Seen by Provider: Jul 23, 2022 Time Seen by Provider: 17:10 History of Present Illness Consult requested by Dr. Woodward for cellulitis and abscesses. Patient is a 32 year old male who has a history of T1DM and methamphetamine abuse that presented to the ED on 07/22 for bilateral forearm lesions, erythema, edema, and pain. He states that he noticed the abscesses a week ago. 24 hours prior to admission, he was seen at [facility] and started on antibiotics but his symptoms were worsening. He complains of pain mostly in his right hand, especially in his 5th digit, worse with movement and palpation. Patient states that his blood sugar is usually around 400 and that he has symptoms of hypoglycemia if it gets lower than that. Patient has a fluctuant abscess on his right elbow measuring 1.2 x 2.0 x 0.9cm with a depth of 1.0cm, another on his right forearm measuring 0.6 x 0.6 x 0.3 cm with a depth of 1.0cm, and another on his left forearm measuring 1.2 x 1.1 x 1.4 cm with a depth of 1.6 cm. Patient also has a blister on the 5th digit of his right hand. Patient has cellulitis, erythema and edema in his upper extremities bilaterally, worse on the right. Allergies and Home Medications Allergies Coded Allergies: No Known Drug Allergies (Unverified , 10/25/20) Patient Home Medication List Home Medication List Reviewed: Yes Collagenase (Santyl) 250 Unit/Gram Oint..gm., 1 GM TP BID Prescribed by: JIMMY WOODWARD on 07/24/22817 Insulin Aspart (Novolog Flexpen) 100 Unit/Ml (3 Ml) Solution, 5 UNITS SQ AC Prescribed by: JIMMY WOODWARD on 07/24/22817 Insulin Detemir (Levemir Flextouch) 100 Unit/Ml (3 Ml) Insuln.pen, 15 UNIT SQ HS Prescribed by: JIMMY WOODWARD on 07/24/22817 Sodium Chlor/Hypochlorous Acid (Vashe Wound Therapy Solution) 0.033 % Irrig.soln, 0 ML IR UD PRN for wound irrigation Prescribed by: JIMMY WOODWARD on 07/24/22 0818 Sulfamethoxazole/Trimethoprim (Bactrim Ds Tablet) 1 Each Tablet, 1 EACH PO BID Prescribed by: JIMMY WOODWARD on 07/24/22817 Discontinued Medications Amoxicillin (Amoxicillin) 500 Mg Capsule, 500 MG PO TID Discontinued Reason: No Longer Taking Prescribed by: GEOVANY PORTILLO on 08/27/21 1337 Last Action: Discontinued Benzonatate (Tessalon Perles) 100 Mg Capsule, 200 MG PO TID PRN for COUGH Discontinued Reason: No Longer Taking Prescribed by: ALONA MILLER on 10/25/202018 Last Action: Discontinued Clindamycin HCl (Clindamycin HCl) 300 Mg Capsule, 300 MG PO TID Discontinued Reason: No Longer Taking Prescribed by: GEOVANY PORTILLO on 09/10/21 1315 Last Action: Discontinued Hydrocodone/Acetaminophen (Hydrocodone-Acetamin 5-325 mg) 1 Each Tablet, 1 TAB PO Q4H PRN for PAIN-MODERATE (5-7) Discontinued Reason: No Longer Taking Prescribed by: GEOVANY PORTILLO on 08/27/218 Last Action: Discontinued Insulin NPH Hum/Reg Insulin Hm (Relion Novolin 70-30 Vial) 100 Unit/Ml (70-30) Vial, UNIT SQ AC, (Reported) Entered as Reported by: JHOAN PRYOR on 07/23/22 1422 Last Action: Reviewed Past Orbjpgc-Uarsnh-Tlniet Hx Patient Social History Smoking Status: Current Everyday Smoker (2ppd) Recent Hopitalizations: No Alcohol Use?: No Substance type: Methamphetamine (IV) Have you traveled recently?: No Seasonal Allergies Seasonal Allergies: No Surgeries History of Surgeries: No Respiratory History of Respiratory Disorde: No Cardiovascular History of Cardiac Disorders: No Neurological History of Neurological Disord: No Genitourinary History of Genitourinary Disor: No Gastrointestinal History of Gastrointestinal Di: No Musculoskeletal History of Musculoskeletal Dis: No Endocrine History of Endocrine Disorders: Yes Endocrine Disorders: Diabetes, Insulin dep HEENT History of HEENT Disorders: No Cancer History of Cancer: No Psychosocial History of Psychiatric Problem: No Integumentary History of Skin or Integumenta: No Family Medical History Significant Family History: No Pertinent Family Hx Review of Systems-General Constitutional: No chills, No fever EENTM: No hearing loss, No blurred vision Respiratory: No cough, No dyspnea on exertion Gastrointestinal: No abdominal pain, No constipation Genitourinary: No decreased output, No discharge Musculoskeletal: No back pain, No neck pain Skin: see HPI, lesions (Multiple on b/l UEs) Psychiatric/Neurological: Anxiety, Depressed Physical Exam-General Problems Physical Exam Vital Signs Vital Signs - First Documented 07/22/22 12:25 Temp 36.9 Pulse 118 Resp 16 B/P (MAP) 123/75 (91) Pulse Ox 98 O2 Delivery Room Air Capillary Refill : Less Than 3 Seconds General Appearance: no apparent distress, thin HEENT: PERRL/EOMI, normal ENT inspection Neck: non-tender, supple Respiratory: chest non-tender, no respiratory distress Cardiovascular: regular rate, rhythm, no JVD Gastrointestinal: non tender, soft Rectal: deferred Back: normal inspection, no vertebral tenderness Extremities: swelling (b/l forearms), other (Multiple lesions on b/l forearms) Neurologic/Psychiatric: alert, oriented x 3, depressed affect Skin: cool, other (multiple lesions, b/l forearms) Lymphatic: no adenopathy Data Review Labs Laboratory Tests 07/22/22 17:14: Sodium Level 134L, Potassium Level 3.1L, Chloride Level 97L, Carbon Dioxide Level 19L, Anion Gap 18H, Blood Urea Nitrogen 13, Creatinine 1.43H, Estimat Glomerular Filtration Rate 66, BUN/Creatinine Ratio 9, Glucose Level 593*H, Calcium Level 9.6, Beta-Hydroxybutyrate (Chem panel) 1.13H 07/22/22 18:48: Sodium Level 138, Potassium Level 3.1L, Chloride Level 101, Carbon Dioxide Level 22, Anion Gap 15H, Blood Urea Nitrogen 12, Creatinine 1.30, Estimat Glomerular Filtration Rate 74, BUN/Creatinine Ratio 9, Glucose Level 540*H, Calcium Level 8.8 07/22/22 19:35: Glucometer 406*H 07/22/22 20:35: Glucometer 319H 07/22/22 21:30: Glucometer 262H 07/22/22 22:34: Glucometer 226H 07/22/22 23:00: Sodium Level 136, Potassium Level 3.2L, Chloride Level 104, Carbon Dioxide Level 22, Anion Gap 10, Blood Urea Nitrogen 9, Creatinine 0.85, Estimat Glomerular Filtration Rate 117, BUN/Creatinine Ratio 11, Glucose Level 222H, Calcium Level 8.3L 07/22/22 23:34: Glucometer 219H 07/23/22 00:40: Glucometer 207H 07/23/22 01:39: Glucometer 216H 07/23/22 02:32: Glucometer 222H 07/23/22 03:41: Glucometer 171H 07/23/22 04:27: Glucometer 213H 07/23/22 04:45: White Blood Count 14.6H, Red Blood Count 3.08L, Hemoglobin 8.5L, Hematocrit 26L, Mean Corpuscular Volume 84, Mean Corpuscular Hemoglobin 28, Mean Corpuscular Hemoglobin Concent 33, Red Cell Distribution Width 13.4, Platelet Count 303, Mean Platelet Volume 9.3, Immature Granulocyte % (Auto) 1, Neutrophils (%) (Auto) 78H, Lymphocytes (%) (Auto) 14, Monocytes (%) (Auto) 7, Eosinophils (%) (Auto) 1, Basophils (%) (Auto) 0, Neutrophils # (Auto) 11.4H, Lymphocytes # (Auto) 2.0, Monocytes # (Auto) 1.0, Eosinophils # (Auto) 0.1, Basophils # (Auto) 0.1, Immature Granulocyte # (Auto) 0.1, Sodium Level 131L, Potassium Level 3.0L, Chloride Level 103, Carbon Dioxide Level 20L, Anion Gap 8, Blood Urea Nitrogen 7, Creatinine 0.76, Estimat Glomerular Filtration Rate 121, BUN/Creatinine Ratio 9, Glucose Level 235H, Calcium Level 8.0L, Corrected Calcium 9.4, Total Bili nick 0.2, Aspartate Amino Transf (AST/SGOT) 17, Alanine Aminotransferase (ALT/SGPT) 14, Alkaline Phosphatase 96, Total Protein 5.6L, Albumin 2.3L 07/23/22 05:31: Glucometer 263H 07/23/22 06:35: Glucometer 241H 07/23/22 07:16: Glucometer 223H 07/23/22 08:29: Glucometer 219H 07/23/22 09:25: Glucometer 214H 07/23/22 10:25: Glucometer 175H 07/23/22 13:03: Glucometer 127H 07/23/22 15:15: Sodium Level 135, Potassium Level 3.4L, Chloride Level 104, Carbon Dioxide Level 22, Anion Gap 9, Blood Urea Nitrogen 5L, Creatinine 0.79, Estimat Glomerular Filtration Rate 120, BUN/Creatinine Ratio 6, Glucose Level 218H, Calcium Level 8.0L 07/23/22 16:02: Glucometer 228H Microbiology 07/22/22 Urine Culture - Final, Complete NO GROWTH 07/22/22 Blood Culture - Preliminary, Resulted No growth 07/22/22 Gram Stain - Final, Resulted 07/22/22 Wound Culture - Preliminary, Resulted Staphylococcus aureus Assessment/Plan Assessment/Plan Assessment/Plan Fluctuant abscesses Cellulitis T1DM Illicit drug use Debridement of necrotic tissues performed Wet to dry packing with Santyl and Dakin's BID Continue IV antibiotics Continue pain management Currently on sliding scale insulin Encouraged patient to stop use of methamphetamine ABRAM SHAFER DO 07/24/222056: History of Present Illness History of Present Illness History of Present Illness Consult requested by Dr. Whitlock for cellulitis and abscess. Patient is a 32-year-old male who has had recent methamphetamine abuse that he injected into the bilateral forearms. He also is a diabetic which has difficulty controlling and does not follow-up very well. Patient started having abscesses about 1 week ago. They continue to worse 7 and so he was seen at [facility] walk-in clinic which she was given antibiotics. Patient states that they continue to worsen where he brought himself to the emergency department. Patient is have limited drainage from the few wounds that he has. There is some slight fluctuance and also has extension into the right hand. Since admission patient states that he has improved slightly. His arms hurt and he does feel anxious. No other complaints at this time. Denies nausea vomiting fever sweats chills shortness of breath or chest pain at this time. Allergies and Home Medications Allergies Coded Allergies: No Known Drug Allergies (Unverified , 10/25/20) Patient Home Medication List Home Medication List Reviewed: Yes Collagenase (Santyl) 250 Unit/Gram Oint..gm., 1 GM TP BID Prescribed by: JIMMY WOODWARD on 07/24/22817 Insulin Aspart (Novolog Flexpen) 100 Unit/Ml (3 Ml) Solution, 5 UNITS SQ AC Prescribed by: JIMMY WOODWARD on 07/24/22817 Insulin Detemir (Levemir Flextouch) 100 Unit/Ml (3 Ml) Insuln.pen, 15 UNIT SQ HS Prescribed by: JIMMY WOODWARD on 07/24/22817 Sodium Chlor/Hypochlorous Acid (Vashe Wound Therapy Solution) 0.033 % Irrig.soln, 0 ML IR UD PRN for wound irrigation Prescribed by: JIMMY WOODWARD on 07/24/22817 Sulfamethoxazole/Trimethoprim (Bactrim Ds Tablet) 1 Each Tablet, 1 EACH PO BID Prescribed by: JIMMY WOODWARD on 07/24/22817 Discontinued Medications Amoxicillin (Amoxicillin) 500 Mg Capsule, 500 MG PO TID Discontinued Reason: No Longer Taking Prescribed by: GEOVANY PORTILLO on 08/27/21 1337 Last Action: Discontinued Benzonatate (Tessalon Perles) 100 Mg Capsule, 200 MG PO TID PRN for COUGH Discontinued Reason: No Longer Taking Prescribed by: ALONA MILLER on 10/25/202018 Last Action: Discontinued Clindamycin HCl (Clindamycin HCl) 300 Mg Capsule, 300 MG PO TID Discontinued Reason: No Longer Taking Prescribed by: GEOVANY PORTILLO on 09/10/21 1315 Last Action: Discontinued Hydrocodone/Acetaminophen (Hydrocodone-Acetamin 5-325 mg) 1 Each Tablet, 1 TAB PO Q4H PRN for PAIN-MODERATE (5-7) Discontinued Reason: No Longer Taking Prescribed by: GEOVANY PORTILLO on 08/27/218 Last Action: Discontinued Insulin NPH Hum/Reg Insulin Hm (Relion Novolin 70-30 Vial) 100 Unit/Ml (70-30) Vial, UNIT SQ AC, (Reported) Entered as Reported by: JHOAN PRYOR on 07/23/22 1422 Last Action: Reviewed Past Zipgjbz-Uyaduw-Oubefx Hx Reviewed Nursing Assessment Reviewed/Agree w Nursing PMH: Yes Family Medical History Significant Family History: No Pertinent Family Hx Review of Systems-General Constitutional: No chills, No fever EENTM: No hearing loss, No blurred vision Respiratory: No cough, No dyspnea on exertion Gastrointestinal: No abdominal pain, No constipation Genitourinary: No decreased output, No discharge Musculoskeletal: No back pain, No neck pain Skin: change in color, lesions (Multiple on b/l UEs) Psychiatric/Neurological: Anxiety, Depressed All Other Systems Reviewed Negative Unless Noted: Yes (Negative excepted noted.) Physical Exam-General Problems Physical Exam General Appearance: no apparent distress, thin HEENT: PERRL/EOMI, normal ENT inspection Neck: non-tender, supple Respiratory: chest non-tender, no respiratory distress Cardiovascular: regular rate, rhythm, no JVD Gastrointestinal: non tender, soft Rectal: deferred Back: normal inspection, no vertebral tenderness Extremities: swelling (b/l forearms), other (Multiple lesions on b/l forearms, 3 areas of necrotic tissue and the right hand with a blister on the fifth digit significant swelling but has some motion to the finger but tender) Neurologic/Psychiatric: alert, oriented x 3, depressed affect Skin: No cool; other (multiple lesions, b/l forearms, warm with some areas of purulent drainage) Lymphatic: no adenopathy Assessment/Plan Assessment/Plan Assessment/Plan Fluctuant abscesses with necrotic tissue Cellulitis T1DM Illicit drug use Debridement of necrotic tissues performed we discussed risk and benefits of this and patient wishes to proceed. Wet to dry packing with Santyl and Dakin's BID Continue IV antibiotics Continue pain management Currently on sliding scale insulin Encouraged patient to stop use of methamphetamine Sharp debridement of right elbow removing skin and subcutaneous tissue measured 1.2 x 2 x 0.9 cm. Right arm Sharp debridement of skin and subcutaneous tissue measuring 0.6 x 0.6 x 0.3 cm and left forearm Sharp debridement of skin subcutaneous tissue 1.2 x 1.1 x 1.4 cm these were performed. The wounds were irrigated and packed. Patient tolerated procedure well without any complications. Patient will need continued wound care which wound care is following as well. Supervisory-Addendum Brief Verification & Attestation Participated in pt care: history, MDM, physical Personally performed: exam, history, MDM, supervision of care Care discussed with: Medical Student Procedures: n/a Results interpretation: Verified all documentation Verification and Attestation of Medical Student E/M Service A medical student performed and documented this service in my presence. I reviewed and verified all information documented by the medical student and made modifications to such information, when appropriate. I personally performed the physical exam and medical decision making. Abram Shafer, Jul 23, 2022,20:57 ZACK PACHECO Jul 23, 2022 17:25 ABRAM SHAFER DO Jul 24, 2022 20:57
[2022-07-23 19:12] VITALS: BP 136/69
[2022-07-23] MEDS ORDERED: ALPRAZolam 0.5 MG (XANAX) TAB PO PRN (20:45)
[2022-07-23] MEDS ORDERED: DAKIN'S 1/4 STRENGTH (0.125%) 237 ML BTL TOP SCH (21:00)
[2022-07-23] MEDS ORDERED: COLLAGENASE 30 GM (SANTYL) TUBE TP SCH (21:00)
[2022-07-24] VITALS: BP 106/67
[2022-07-24 03:49] VITALS: BP 112/79
[2022-07-24] MEDS: VANCOMYCIN 1 GM/NS 250 ML IVPB IV SCH ×2 (04:26)
[2022-07-24 05:19] LABS: BASOPHILS # (AUTO) 0.1 10^3/uL (0.0-0.1); BASOPHILS % (AUTO) 0 % (0-10); EOSINOPHILS # (AUTO) 0.1 10^3/uL (0.0-0.3); EOSINOPHILS % (AUTO) 1 % (0-10); HEMATOCRIT 30 % (40-54); HEMOGLOBIN 9.4 g/dL (13.3-17.7); LYMPHOCYTES # (AUTO) 2.3 10^3/uL (1.0-4.0); LYMPHOCYTES % (AUTO) 18 % (12-44); MEAN CORPUSCULAR HEMOGLOBIN 28 pg (25-34); MEAN CORPUSCULAR HGB CONC 31 g/dL (32-36); MEAN CORPUSCULAR VOLUME 89 fL (80-99); MEAN PLATELET VOLUME 10.7 fL (9.0-12.2); MONOCYTES # (AUTO) 0.8 10^3/uL (0.0-1.0); MONOCYTES % (AUTO) 7 % (0-12); NEUTROPHILS # (AUTO) 9.4 10^3/uL (1.8-7.8); NEUTROPHILS % (AUTO) 74 % (42-75); PLATELET COUNT 275 10^3/uL (130-400); WHITE BLOOD COUNT 12.8 10^3/uL (4.3-11.0)
[2022-07-24 05:38] LABS: ALBUMIN 2.2 GM/DL (3.2-4.5); BILIRUBIN,TOTAL 0.2 MG/DL (0.1-1.0); CALCIUM 8.2 MG/DL (8.5-10.1); CREATININE SERUM 0.8 MG/DL (0.60-1.30); POTASSIUM 3.7 MMOL/L (3.6-5.0); TOTAL PROTEIN 5.9 GM/DL (6.4-8.2)
[2022-07-24] MEDS: inSUlin ASPART (NovoLOG) 1 UNIT/0.01 ML (CHARGE PER UNIT) SC SCH (06:36)
--- NOTE | 2022-07-24 07:22 | Progress Note - Surgery ---
TARAZACK 07/24/22 0722: Subjective Date Seen by a Provider: Jul 24, 2022 Time Seen by a Provider: 07:20 Subjective/Events-last exam Patient is awake and alert in his bed this morning. Patient states that his pain is well controlled. There is some slight drainage from the abscess on his right elbow. Patient has no new complaints. Review of Systems General: No Chills, No Night Sweats HEENT: No Visual Changes, No Eye Pain Pulmonary: No Dyspnea, No Cough Cardiovascular: No: Chest Pain, Palpitations Gastrointestinal: No: Nausea, Vomiting Genitourinary: No Dysuria, No Frequency Musculoskeletal: No: neck pain, shoulder pain Neurological: No: Weakness, Numbness Focused Exam Lactate Level 07/22/22 13:50: Lactic Acid Level 2.57*H 07/22/22 15:55: Lactic Acid Level 1.51 Objective Exam Vital Signs Date Time Temp Pulse Resp B/P (MAP) Pulse Ox O2 Delivery O2 Flow Rate FiO2 07/24/22 03:49 36.9 86 18 112/79 (90) 97 Room Air 07/24/22 00:00 37.2 90 16 106/67 (80) 100 Room Air 07/23/22 20:00 98 Room Air 07/23/22 19:12 37.0 109 20 136/69 (91) 100 Room Air 07/23/22 17:21 98 Room Air 07/23/22 17:16 37.3 105 20 139/86 (103) 100 Room Air 07/23/22 16:00 Room Air 07/23/22 16:00 37.0 07/23/22 16:00 96 7 146/85 (105) 98 Room Air 07/23/22 15:00 101 11 Room Air 07/23/22 14:00 98 9 129/85 (100) 98 Room Air 07/23/22 13:00 96 07/23/22 13:00 97 15 98 Room Air 07/23/22 12:00 85 12 109/67 (81) 97 Room Air 07/23/22 12:00 Room Air 07/23/22 11:35 37.2 07/23/22 11:00 83 11 115/68 (84) 97 Room Air 07/23/22 10:00 86 11 106/60 (75) 97 Room Air 07/23/22 09:00 87 11 107/62 (77) 97 Room Air 07/23/22 08:00 96 20 124/89 (101) 97 Room Air 07/23/22 08:00 Room Air 07/23/22 07:39 36.8 I & O 07/24/22 07:00 Intake Total 4272 ml Output Total 400 ml Balance 3872 ml Capillary Refill : Less Than 3 Seconds General Appearance: No Apparent Distress, Chronically ill, Thin HEENT: PERRL/EOMI, Moist Mucous Membranes; No Scleral Icterus (L), No Scleral Icterus (R); Other (edentulous) Neck: Normal Inspection, Supple Respiratory: Lungs Clear, No Accessory Muscle Use, No Respiratory Distress Cardiovascular: Regular Rate, Rhythm, No JVD, No Murmur Gastrointestinal: non tender, soft Extremity: Normal Capillary Refill, No Calf Tenderness, No Pedal Edema Neurologic/Psychiatric: Alert, Oriented x3, Normal Mood/Affect Skin: Erythema, Other (multiple draining ulcers on right upper extremity, with edema of hand and ulceration on base of fifth metacarpal) Results Lab Laboratory Tests 07/23/22 08:29: Glucometer 219H 07/23/22 09:25: Glucometer 214H 07/23/22 10:25: Glucometer 175H 07/23/22 13:03: Glucometer 127H 07/23/22 15:15: Sodium Level 135, Potassium Level 3.4L, Chloride Level 104, Carbon Dioxide Level 22, Anion Gap 9, Blood Urea Nitrogen 5L, Creatinine 0.79, Estimat Glomerular Filtration Rate 120, BUN/Creatinine Ratio 6, Glucose Level 218H, Calcium Level 8.0L 07/23/22 16:02: Glucometer 228H 07/23/22 20:02: Glucometer 351H 07/24/22 05:10: Sodium Level 133L, Potassium Level 3.7, Chloride Level 102, Carbon Dioxide Level 19L, Anion Gap 12, Blood Urea Nitrogen 5L, Creatinine 0.80, Estimat Glomerular Filtration Rate 119, BUN/Creatinine Ratio 6, Glucose Level 245H, Calcium Level 8.2L, White Blood Count 12.8H, Red Blood Count 3.36L, Hemoglobin 9.4L, Hematocrit 30L, Mean Corpuscular Volume 89, Mean Corpuscular Hemoglobin 28, Mean Corpuscular Hemoglobin Concent 31L, Red Cell Distribution Width 13.5, Platelet Count 275, Mean Platelet Volume 10.7, Immature Granulocyte % (Auto) 1, Neutrophils (%) (Auto) 74, Lymphocytes (%) (Auto) 18, Monocytes (%) (Auto) 7, Eosinophils (%) (Auto) 1, Basophils (%) (Auto) 0, Neutrophils # (Auto) 9.4H, Lymphocytes # (Auto) 2.3, Monocytes # (Auto) 0.8, Eosinophils # (Auto) 0.1, Basophils # (Auto) 0.1, Immature Granulocyte # (Auto) 0.1, Corrected Calcium 9.6, Total Bilirubin 0.2, Aspartate Amino Transf (AST/SGOT) 32, Alanine Aminotransferase (ALT/SGPT) 25, Alkaline Phosphatase 117, Total Protein 5.9L, Albumin 2.2L Microbiology 07/22/22 Urine Culture - Final, Complete NO GROWTH 07/22/22 Blood Culture - Preliminary, Resulted No growth 07/22/22 Gram Stain - Final, Resulted 07/22/22 Wound Culture - Preliminary, Resulted Staphylococcus aureus Assessment/Plan Assessment/Plan Assessment/Plan Fluctuant abscesses Cellulitis T1DM Illicit drug use Debridement of necrotic tissues performed yesterday Wet to dry packing with Santyl and Dakin's BID Continue IV antibiotics Continue pain management Currently on sliding scale insulin Encouraged patient to stop use of methamphetamine NAHOMI SHAFER DO 07/24/222058: Subjective Subjective/Events-last exam Called by Dr. Woodward and notified me that the patient left AMA. I was unable to see before he left. Objective Exam General Appearance: Other (Not able to be seen by me today he left AMA) Assessment/Plan Assessment/Plan Assessment/Plan Patient left AMA prior to me seeing Supervisory-Addendum Brief Verification & Attestation Participated in pt care: other (Patient left AMA prior to me seeing) Personally performed: other (Patient left AMA prior to me seeing) Care discussed with: Medical Student Procedures: n/a Patient left AGAINST MEDICAL ADVICE. I was notified by Dr. Woodward prior to me seeing ZACK PACHECO Jul 24, 2022 07:22 NAHOMI SHAFER DO Jul 24, 2022 20:59
[2022-07-24 08:03] VITALS: BP 133/83
[2022-07-24] MEDS ORDERED: INSU100I29 SQ (08:18)
[2022-07-24] MEDS ORDERED: SODI475I IR (08:18)
[2022-07-24] MEDS ORDERED: SULF1TAB38 PO (08:18)
[2022-07-24] MEDS ORDERED: COLL30OI TP (08:18)
[2022-07-24] MEDS ORDERED: INSU100I14 SQ (08:18)
--- NOTE | 2022-07-24 08:30 | Discharge Inst-Simple/Standard ---
Discharge Inst-Standard Discharge Medications New, Converted or Re-Newed RX: Transmitted to Pharmacy Patient Instructions/Follow Up Plan of Care/Instructions/FU: Please continue to take your medications as written. Please follow up with your primary care doctor to follow up this hospital stay. Please pick your prescriptions up at [facility]. Please continue to work on staying off meth. Please keep your appointment with [facility] next month. Please follow Dr Shah's instructions for your wounds. 1. Cleanse wounds with Vashe (or 1/4 strength Dakin's) 2. Apply Santyl to all wound beds (thick layer) 3. Dampen 4x4 gauze with 1/4 strength Dakin's solution and loosely fluff atop Santyl 4. Cover with gauze, roller gauze and secure with medipore tape. 5. DANG wrap atop dressing and change twice daily Activity as Tolerated: Yes Discharge Diet: ADA Diet Return to The Hospital For: Chest pain, shortness of breath, fever, weakness, if you feel you are getting worse. JIMMY JEFFERY MD Jul 24, 2022 08:29
[2022-07-24] MEDS ORDERED: PATCH REMOVAL TP SCH (09:00)
== END 2022-07-24 09:28 | disposition left against medical advice (07) | DRG 853 ==
LOC: EDUNIT# 12:21 → ER 12:24 → ICU 15:25 → 4TH 07-23 17:14
PROVIDERS: ADMIT Family Medicine; ATTEND Family Medicine
PROC: 0JBH0ZZ Excision of Left Lower Arm Subcutaneous Tissue and Fascia, Open Approach (ICD-10-PCS; principal; 2022-07-23)
PROC: 0JBD0ZZ Excision of Right Upper Arm Subcutaneous Tissue and Fascia, Open Approach (ICD-10-PCS; 2022-07-23)
PROC: 0JBG0ZZ Excision of Right Lower Arm Subcutaneous Tissue and Fascia, Open Approach (ICD-10-PCS; 2022-07-23)
DX: A41.9 Sepsis, unspecified organism (principal); E10.10 Type 1 diabetes mellitus with ketoacidosis without coma; E46 Unspecified protein-calorie malnutrition; N17.9 Acute kidney failure, unspecified; L03.114 Cellulitis of left upper limb; L03.113 Cellulitis of right upper limb; L02.414 Cutaneous abscess of left upper limb; L02.413 Cutaneous abscess of right upper limb; E87.1 Hypo-osmolality and hyponatremia; R65.20 Severe sepsis without septic shock; F15.10 Other stimulant abuse, uncomplicated; F17.210 Nicotine dependence, cigarettes, uncomplicated; F32.A Depression, unspecified; E87.6 Hypokalemia; E88.09 Other disorders of plasma-protein metabolism, not elsewhere classified; Z68.20 Body mass index [BMI] 20.0-20.9, adult
CPT/HCPCS: 36415; 71045; 73130; 76881; 80048; 80053; 80306; 81000; 82010; 82947; 83036; 83605; 85007; 85025; 85027; 85610; 85652; 85730; 86141; 87040; 87070; 87077; 87088; 87186; 87205

== ENCOUNTER → 2022-07-28 | Outpatient (CLI) | payer BC ==
[~2022-07-28] MED LIST changes: +COLL30OI TP; +HUM100VI13 SQ; +INSU100I14 SQ; +INSU100I29 SQ; +SODI475I IR; +SULF1TAB38 PO
[2022-07-28 11:31] LABS: BENZODIAZEPINES SCREEN URINE NEGATIVE (NEGATIVE); COCAINE SCREEN URINE NEGATIVE (NEGATIVE)
[2022-07-28 11:32] LABS: AMPHETAMINE SCREEN, URINE POSITIVE (NEGATIVE); BARBITURATE SCREEN URINE NEGATIVE (NEGATIVE); CANNABINOID SCREEN, URINE NEGATIVE (NEGATIVE); METHADONE STAT NEGATIVE (NEGATIVE); OPIATE SCREEN URINE NEGATIVE (NEGATIVE); OXYCODONE STAT NEGATIVE (NEGATIVE); PROPOXYPHENE STAT NEGATIVE (NEGATIVE); TRICYCLIC ANTIDEPRESSANTS SCRE NEGATIVE (NEGATIVE)
== END ==
LOC: WOUNDCARE 09:09
PROVIDERS: ATTEND Family Medicine
DX: L02.413 Cutaneous abscess of right upper limb (principal); L02.414 Cutaneous abscess of left upper limb; L02.511 Cutaneous abscess of right hand; L03.113 Cellulitis of right upper limb; T43.625A Adverse effect of amphetamines, initial encounter; B95.62 Methicillin resistant Staphylococcus aureus infection as the cause of diseases classified elsewhere; T65.292A Toxic effect of other tobacco and nicotine, intentional self-harm, initial encounter; E43 Unspecified severe protein-calorie malnutrition; D46.4 Refractory anemia, unspecified; E10.622 Type 1 diabetes mellitus with other skin ulcer; E10.65 Type 1 diabetes mellitus with hyperglycemia
CPT/HCPCS: 11042; 36415; 80306; 82607; 82728; 82746; 83540; 83550; 84134; 87070; 87077; 87205

== ENCOUNTER → 2022-08-06 | Outpatient (CLI) | payer BC | LOC: WOUNDCARE 08:40 | PROVIDERS: ATTEND Family Medicine | DX: L02.413 Cutaneous abscess of right upper limb (principal); L02.414 Cutaneous abscess of left upper limb; L02.511 Cutaneous abscess of right hand; L03.113 Cellulitis of right upper limb; T43.625A Adverse effect of amphetamines, initial encounter; B95.62 Methicillin resistant Staphylococcus aureus infection as the cause of diseases classified elsewhere; T65.292A Toxic effect of other tobacco and nicotine, intentional self-harm, initial encounter; E46 Unspecified protein-calorie malnutrition; D46.4 Refractory anemia, unspecified; E10.622 Type 1 diabetes mellitus with other skin ulcer; E10.65 Type 1 diabetes mellitus with hyperglycemia; B95.2 Enterococcus as the cause of diseases classified elsewhere; Z91.199 Patient's noncompliance with other medical treatment and regimen due to unspecified reason | CPT/HCPCS: 10060; 11042; 11043 ==

== ENCOUNTER → 2022-08-13 | Outpatient (CLI) | payer BC | LOC: WOUNDCARE 11:34 | PROVIDERS: ATTEND Family Medicine | DX: L02.413 Cutaneous abscess of right upper limb (principal); L02.414 Cutaneous abscess of left upper limb; L02.511 Cutaneous abscess of right hand; L03.113 Cellulitis of right upper limb; T43.625A Adverse effect of amphetamines, initial encounter; B95.62 Methicillin resistant Staphylococcus aureus infection as the cause of diseases classified elsewhere; T65.292A Toxic effect of other tobacco and nicotine, intentional self-harm, initial encounter; E46 Unspecified protein-calorie malnutrition; D46.4 Refractory anemia, unspecified; E10.622 Type 1 diabetes mellitus with other skin ulcer; E10.65 Type 1 diabetes mellitus with hyperglycemia; Z91.199 Patient's noncompliance with other medical treatment and regimen due to unspecified reason; E10.52 Type 1 diabetes mellitus with diabetic peripheral angiopathy with gangrene; I96 Gangrene, not elsewhere classified | CPT/HCPCS: 11042 ==

== ENCOUNTER → 2022-08-20 | Outpatient (CLI) | payer BC | LOC: WOUNDCARE 11:02 | PROVIDERS: ATTEND Family Medicine | DX: L02.413 Cutaneous abscess of right upper limb (principal); L02.414 Cutaneous abscess of left upper limb; L02.511 Cutaneous abscess of right hand; L03.113 Cellulitis of right upper limb; T43.625A Adverse effect of amphetamines, initial encounter; T65.292A Toxic effect of other tobacco and nicotine, intentional self-harm, initial encounter; E43 Unspecified severe protein-calorie malnutrition; D46.4 Refractory anemia, unspecified; E11.622 Type 2 diabetes mellitus with other skin ulcer; E11.65 Type 2 diabetes mellitus with hyperglycemia; A49.02 Methicillin resistant Staphylococcus aureus infection, unspecified site; E11.52 Type 2 diabetes mellitus with diabetic peripheral angiopathy with gangrene; I96 Gangrene, not elsewhere classified; Z91.199 Patient's noncompliance with other medical treatment and regimen due to unspecified reason; Z68.21 Body mass index [BMI] 21.0-21.9, adult | CPT/HCPCS: 11042 ==

== ENCOUNTER → 2022-08-27 | Outpatient (CLI) | payer BC | LOC: WOUNDCARE 11:09 | PROVIDERS: ATTEND Family Medicine | DX: L02.414 Cutaneous abscess of left upper limb (principal); L02.511 Cutaneous abscess of right hand; L03.113 Cellulitis of right upper limb; T43.625A Adverse effect of amphetamines, initial encounter; T65.222A Toxic effect of tobacco cigarettes, intentional self-harm, initial encounter; E44.1 Mild protein-calorie malnutrition; D46.4 Refractory anemia, unspecified; E10.65 Type 1 diabetes mellitus with hyperglycemia; E10.622 Type 1 diabetes mellitus with other skin ulcer; B95.62 Methicillin resistant Staphylococcus aureus infection as the cause of diseases classified elsewhere; B95.2 Enterococcus as the cause of diseases classified elsewhere; Z91.199 Patient's noncompliance with other medical treatment and regimen due to unspecified reason; M24.541 Contracture, right hand | CPT/HCPCS: 11042 ==

== ENCOUNTER → 2022-09-03 | Outpatient (CLI) | payer BC | LOC: WOUNDCARE 11:08 | PROVIDERS: ATTEND Family Medicine | DX: L02.414 Cutaneous abscess of left upper limb (principal); I96 Gangrene, not elsewhere classified; L02.511 Cutaneous abscess of right hand; L03.113 Cellulitis of right upper limb; T43.625A Adverse effect of amphetamines, initial encounter; T65.292A Toxic effect of other tobacco and nicotine, intentional self-harm, initial encounter; E43 Unspecified severe protein-calorie malnutrition; D46.4 Refractory anemia, unspecified; E11.621 Type 2 diabetes mellitus with foot ulcer; E11.65 Type 2 diabetes mellitus with hyperglycemia; A49.02 Methicillin resistant Staphylococcus aureus infection, unspecified site; M24.541 Contracture, right hand; E11.52 Type 2 diabetes mellitus with diabetic peripheral angiopathy with gangrene; Z68.21 Body mass index [BMI] 21.0-21.9, adult; Z91.199 Patient's noncompliance with other medical treatment and regimen due to unspecified reason | CPT/HCPCS: 11042 ==

== ENCOUNTER → 2022-09-10 | Outpatient (CLI) | payer BC | LOC: WOUNDCARE 11:04 | PROVIDERS: ATTEND Family Medicine | DX: L02.414 Cutaneous abscess of left upper limb (principal); L02.511 Cutaneous abscess of right hand; L03.113 Cellulitis of right upper limb; T43.625A Adverse effect of amphetamines, initial encounter; T65.292A Toxic effect of other tobacco and nicotine, intentional self-harm, initial encounter; E43 Unspecified severe protein-calorie malnutrition; D46.4 Refractory anemia, unspecified; E11.622 Type 2 diabetes mellitus with other skin ulcer; E11.65 Type 2 diabetes mellitus with hyperglycemia; A49.02 Methicillin resistant Staphylococcus aureus infection, unspecified site; B95.2 Enterococcus as the cause of diseases classified elsewhere; Z91.199 Patient's noncompliance with other medical treatment and regimen due to unspecified reason; M24.541 Contracture, right hand | CPT/HCPCS: 99212 ==